=== PATIENT | male | born 1965 | race Caucasian/White ===

== ENCOUNTER 2017-09-03 09:32 | Inpatient (IN) | payer SELFPAY ==
--- NOTE | 2017-09-03 10:33 | RAD ---
SINGLE VIEW OF THE CHEST: Comparison: 05-07-16 History: Chest pain for one week. FINDINGS: Single view of the chest shows an enlarged cardiomediastinal silhouette. The pacemaker is unchanged in position. There is no evidence of consolidation, mass, or pleural effusion. IMPRESSION: Cardiomegaly without evidence of acute cardiopulmonary disease. POS: [facility]
[2017-09-03 10:35] LABS: #Basophils 0.1 thou/uL (0.0-0.2); #Eosinphils 0.1 thou/uL (0.0-0.7); #Lymphocytes 2.3 thou/uL (1.20-3.40); #Monocytes 0.5 thou/uL (0.11-0.59); #Neutrophils 3.8 thou/uL (1.40-6.50); %Basophils 0.9 % (0.0-1.0); %Lymphocytes 33.4 % (21.0-51.0); Hematocrit 48.4 % (42.0-52.0); Mean Platelet Volume 6.3 fL (7.4-10.4); Red Blood Cell (RBC) Count 4.79 mill/uL (4.70-6.10); White Blood Cell (WBC) Count 6.8 thou/uL (4.8-10.8)
[2017-09-03 10:46] LABS: Troponin I 0.027 ng/mL (< 0.028)
[2017-09-03 10:52] LABS: ALT (SGPT) 28 U/L (8-55); AST (SGOT) 28 U/L (5-34); Alkaline Phosphatase 105 U/L (40-150); Anion Gap 21 mmol/L (10-20); BUN (Urea Nitrogen) 19 mg/dL (8.9-20.6); Bilirubin, Total 0.2 mg/dL (0.2-1.2); CK (CPK) 101 U/L (30-200); Calc. Creatinine Clearance 0 mL/min (70-130); Calcium 9.7 mg/dL (7.8-10.44); Carbon Dioxide 21 mmol/L (22-29); Chloride 101 mmol/L (98-107); Estimated GFR-MDRD Greater than 90; Globulin 3.8 g/dL (2.4-3.5); Protein, Total 7.5 g/dL (6.0-8.3)
[2017-09-03] MEDS ORDERED: Nitroglycerin 0.4 MG TAB (25 Tab Bottle) ONE (11:28)
[2017-09-03] MEDS ORDERED: Morphine 4 MG/ML Carpuject ONE (13:20)
[2017-09-03] MEDS ORDERED: Nitroglycerin 0.4 MG TAB (25 Tab Bottle) PO PRN (14:15)
[2017-09-03] MEDS ORDERED: Calcium Carbonate 500 MG ChewTAB PO PRN (14:15)
[2017-09-03] MEDS ORDERED: Bisacodyl 5 MG TAB PO PRN (14:15)
[2017-09-03] MEDS ORDERED: Senokot 8.6 MG TAB PO PRN (14:15)
[2017-09-03] MEDS ORDERED: cloNIDine 0.1 MG TAB PO PRN (14:15)
[2017-09-03] MEDS ORDERED: Acetaminophen 325 MG TAB PO PRN (14:15)
[2017-09-03] MEDS ORDERED: Benzonatate 100 MG CAP PO PRN (14:15)
[2017-09-03] MEDS ORDERED: traMADol HCl 50 MG TAB PO PRN (14:15)
[2017-09-03] MEDS ORDERED: Loratadine 10 MG TAB PO PRN (14:15)
[2017-09-03] MEDS ORDERED: hydrALAZINE 20 MG/ML VIAL SLOW IVP PRN (14:15)
[2017-09-03] MEDS ORDERED: Mag-Al 1200 mg/1200 mg/30 ML UDCUP PO PRN (14:15)
[2017-09-03] MEDS ORDERED: Ondansetron HCl/PF 4 MG/2 ML Vial IVP PRN (14:15)
[2017-09-03] MEDS ORDERED: Lorazepam 1 MG TAB PO PRN (14:15)
[2017-09-03 14:30] LABS: Prothrombin Time 37.3 SEC (12.0-14.7)
[2017-09-03 14:31] LABS: PTT 86.4 SEC (22.9-36.1)
[2017-09-03 14:50] LABS: Troponin I 0.032 ng/mL (< 0.028)
[2017-09-03] MEDS ORDERED: HumaLOG 300 UNITS/3 ML VIAL SC PRN ×2 (15:26)
[2017-09-03] MEDS ORDERED: Dextrose 5% in Water 1,000 ML IV PRN (15:26)
[2017-09-03] MEDS ORDERED: Dextrose 50% Abboject 50 ML SYRINGE SLOW IVP PRN (15:26)
[2017-09-03] MEDS ORDERED: Furosemide 40 MG/4 ML VIAL SLOW IVP SCH (15:30)
--- NOTE | 2017-09-03 17:22 | HP ---
DATE OF ADMISSION: 09/03/2017 PRIMARY CARE PHYSICIAN: Karly Hill MD, at [facility] CHIEF COMPLAINT: Chest pain. HISTORY OF PRESENT ILLNESS: Mr. Riggins is a pleasant 52-year-old male with past medical hi story of nonischemic cardiomyopathy, status post AICD placement in 2013, hypertension; atrial fibril lation, on chronic anticoagulation; and history of hepatitis C; who presented to the emergency room with the above-mentioned complaints. History is mainly obtained by the patient himself and [facility] medical [facility] have been reviewed. The patient was last admitted to our facility in 10/2016 for cocaine and alcohol intoxication leading to encephalopathy. Mr. Riggins reports that he has been compliant with his medication and has been abstaining from alcoho l and drugs at this point. He reports an ongoing chest pain for the last month or so. The symptoms are exacerbated by slight exertion and are relieved by rest. These symptoms were associated with s hortness of breath and diaphoresis. He describes symptoms of difficulty with his breathing when lyi ng flat. He describes his chest pain as 8-9/10 in intensity, located on the left side centrally goi ng to his back. It feels like tightness to him. He reports that since the placement of AICD in , he has not been able to follow up with Cardiology as an outpatient due to financial reasons. He had a cardiac catheterization done prior to the AICD placement in 07/2014, which showed minimal mendez nary artery disease, but severe cardiac dysfunction requiring AICD. His last echocardiogram was mariya e in 10/2016, which showed improvement in his ejection fraction from 25%-45%. In the emergency room, initial workup included a chest x-ray, which did not show any pulmonary vascu lar congestion. His EKG showed ventricular paced rhythm at 75 beats per minute, prolonged QTC at 50 2 milliseconds. He is, otherwise, hemodynamically stable and is being admitted to telemetry unit fo r ACS workup. He was somewhat hypoxic on presentation with oxygen saturation of 89% on room air. Iman vann has a history of COPD, which has not been formally diagnosed, as he has been a longtime smoker. Iman vann reports that he was recently prescribed prednisone by his primary care physician only yesterday, b ut he has not been able to start it as yet. Otherwise, he is compliant with his medications. Recen tly, he was also started on Aldactone along with continuation of Lasix for his \\\\"fluid overload.\\\\" PAST MEDICAL HISTORY: 1. Chronic systolic congestive heart failure, EF of 40%-45%, 10/2016. 2. Chronic atrial fibrillation, on chronic anticoagulation. 3. History of upper extremity DVT in 2013 and on Coumadin. 4. Hypertension. 5. History of transient ischemic attack/stroke. 6. History of chronic obstructive pulmonary disease. 7. History of . PAST SURGICAL HISTORY: 1. AICD placement. 2. History of cardiac ablation for SVT. PAST PSYCHIATRIC HISTORY: Anxiety, depression, and polysubstance abuse. ALLERGIES: LATEX. CURRENT MEDICATIONS: Isosorbide mononitrate 30 mg daily, metoprolol tartrate 100 mg daily, Lasix 40 mg b.i.d., lovastatin 20 mg 2 tabs at bedtime, amlodipine 5 mg daily, Aldactone 25 mg daily, metfor min 500 b.i.d., phenytoin 300 mg 3 times a day, Coumadin 5 mg and 7.5 mg on alternate days, lisinopr il 40 mg daily. FAMILY HISTORY: His father also had a history of blood clots; otherwise, he denies any premature co ronary artery disease running in his family. SOCIAL HISTORY: He used to smoke half pack a day for 30 years, but is currently down to one cigar e very day. He drinks few beers here and there. He has given up his marijuana, methamphetamine and c ocaine habit according to patient. REVIEW OF SYSTEMS: The following complete review of systems was negative, unless otherwise mentione d in the HPI or below: Constitutional: Weight loss or gain, ability to conduct usual activities. Skin: Rash, itching. Eyes: Double vision, pain. ENT/Mouth: Nose bleeding, neck stiffness, pain, tenderness. Cardiovascular: Palpitations, dyspnea on exertion, orthopnea. Respiratory: Shortness of breath, wheezing, cough, hemoptysis, fever or night sweats. Gastrointestinal: Poor appetite, abdominal pain, heartburn, nausea, vomiting, constipation, or diar lyla. Genitourinary: Urgency, frequency, dysuria, nocturia. Musculoskeletal: Pain, swelling. Neurologic/Psychiatric: Anxiety, depression. Allergy/Immunologic: Skin rash, bleeding tendency. It is negative except for those mentioned in the history and physical. LABORATORY DATA AND IMAGING: His CBC shows macrocytosis without anemia. His INR is 3.6. Serum wild mistries show bicarbonate of 21, anion gap of 21, otherwise unremarkable. Cardiac enzymes 0.0274, t roponin with repeat troponin of 0.032. Blood sugar 186. BNP of 48. His plasma alcohol level is 55 . Chest x-ray by my review shows some evidence of pulmonary vascular congestion which is mild. No infiltrates. A 12-lead EKG by my review shows paced rhythm as per HPI. PHYSICAL EXAMINATION: VITAL SIGNS: Upon presentation include blood pressure 119/71, pulse of 70, saturating 89% on room a ir, respirations 24, temperature 97.6. GENERAL: He is sitting upright in bed as he reports that leaning back makes him short of breath. O therwise, he is in no acute distress, awake, alert, oriented x3. HEENT: Mucous membrane is moist and pink. No oropharyngeal exudate or erythema. Head is normoceph alic, atraumatic. Pupils are equal, reactive to light and accommodation. Extraocular movements int act. NECK: Supple without any lymphadenopathy, JVD or bruit. CHEST: Decreased breath sounds are noticed on the right lung base. There are no wheezes, but few c rackles heard at bilateral bases. ABDOMEN: Obese, soft, nontender, and nondistended. Positive bowel sounds. EXTREMITIES: Show pitting edema bilaterally, which is really tight. NEUROLOGIC: Examination is nonfocal. SKIN: Appears to have chronic edematous changes in bilateral lower extremities consistent with veno us stasis. PSYCHIATRIC: Normal affect. IMPRESSION AND PLAN: 1. Chest pain. The patient's symptomatology is concerning for angina. He has normal coronary cath eterization in 2013 with significant cardiomyopathy. Given the multiple risk factors, he is at high risk for developing coronary artery disease. At this time, we will request consultation with Cardi ology and continue to trend serial cardiac enzymes. We will start him on full dose aspirin and trena tor his symptoms. Continue the rest of his cardiac prudent medications as dictated above. We will also get his automatic implantable cardioverter defibrillator interrogated and obtain a nuclear medi cine stress test to rule out acute coronary syndrome. Also, obtain a urine drug screen to rule out cocaine-induced coronary spasm. Continue with his diuretics as well as beta yessica and nitrates. Given his history of chronic obstructive pulmonary disease; some of his symptoms can be because of b ronchospasm. We will order nebulizer as needed as well as long-acting inhaled steroids while he is in the hospital. He normally does not take any inhalers at home and would benefit from being starte d on long-term inhaled steroids or beta agonist. 2. Diabetes mellitus. He will be started on insulin sliding scale for better blood sugar coverage. Accu-Cheks a.c. and at bedtime have been ordered. 3. History of deep venous thrombosis and atrial fibrillation. We will continue with Coumadin with pharmacy to manage the dose. He is currently therapeutic. 4. History of cardiomyopathy, likely due to alcohol abuse. He has an automatic implantable cardiov erter defibrillator in place which will be interrogated as above. Continue cardiac prudent medicati ons. 5. Hypertension, currently well controlled. Resume his isosorbide, amlodipine, Aldactone, Lasix, a nd metoprolol as well as lisinopril at this time. 6. Dyslipidemia. We will recheck his lipid panel and continue with lovastatin. 7. History of chronic systolic congestive heart failure. The patient appears somewhat volume overl oaded. We will give him a dose of IV Lasix and monitor his symptoms. Resume his home medications f rom tomorrow morning including oral Lasix. Continue with Aldactone at home dosages. 8. Tobacco abuse. The patient has been counseled. 9. Alcohol abuse. The patient has provided counseling and he is eager to follow. 10. History of transient ischemic attack and stroke. The patient does not take any aspirin at home . 11. Deep venous thrombosis and gastrointestinal prophylaxis. 12. Code status: FULL CODE. Discussed with the patient. DISPOSITION: The patient is currently being admitted under observation status for chest pain workup which might be angina. If he indeed needs further invasive cardiac workup; he can be changed to in patient status. We will follow the recommendations from Cardiology and the results of his stress te st at this time.
[2017-09-03 17:30] LABS: Troponin I 0.044 ng/mL (< 0.028)
[2017-09-03] MEDS: Mometasone/Formoterol 120 PUFF INHALER INH SCH (18:44)
[2017-09-03 19:02] LABS: Amphetamine Not Detected (NotDetected); Methadone Not Detected (NotDetected); Methamphetamine Not Detected (NotDetected)
[2017-09-03] MEDS: HYDROcodone/Acetaminophen 10/325 mg Tablet PO PRN (20:14)
[2017-09-03] MEDS: Famotidine 20 MG TAB PO SCH (20:15)
[2017-09-03] MEDS ORDERED: Phenytoin 50 MG Chewable Tablet PO SCH (21:00)
[2017-09-04] MEDS: HYDROcodone/Acetaminophen 10/325 mg Tablet PO PRN ×4 (02:03→20:50)
[2017-09-04 05:03] LABS: #Eosinphils 0.2 thou/uL (0.0-0.7); #Lymphocytes 1.9 thou/uL (1.20-3.40); #Monocytes 0.9 thou/uL (0.11-0.59); #Neutrophils 4.9 thou/uL (1.40-6.50); %Basophils 0.4 % (0.0-1.0); %Eosinophils 2.6 % (0.0-10.0); %Lymphocytes 24.1 % (21.0-51.0); %Monocytes 10.9 % (0.0-10.0); Hematocrit 43.7 % (42.0-52.0); Mean Platelet Volume 6.4 fL (7.4-10.4); Red Blood Cell (RBC) Count 4.29 mill/uL (4.70-6.10); White Blood Cell (WBC) Count 7.9 thou/uL (4.8-10.8)
[2017-09-04 05:26] LABS: Anion Gap 16 mmol/L (10-20); BUN (Urea Nitrogen) 18 mg/dL (8.9-20.6); Calc. Creatinine Clearance 208 mL/min (70-130); Calcium 8.7 mg/dL (7.8-10.44); Carbon Dioxide 23 mmol/L (22-29); Chloride 101 mmol/L (98-107); Estimated GFR-MDRD Greater than 90
[2017-09-04] MEDS: Mometasone/Formoterol 120 PUFF INHALER INH SCH ×2 (06:50→18:41)
[2017-09-04 07:19] LABS: Prothrombin Time 25.4 SEC (12.0-14.7)
[2017-09-04] MEDS: Spironolactone 25 MG TAB PO SCH (08:06)
[2017-09-04] MEDS: Famotidine 20 MG TAB PO SCH ×2 (08:06→20:48)
[2017-09-04] MEDS: Amlodipine 5 MG TAB PO SCH (08:06)
[2017-09-04] MEDS: Aspirin 325 MG TAB PO SCH (08:06)
[2017-09-04] MEDS: Lisinopril 10 MG TAB PO SCH (08:07)
[2017-09-04] MEDS ORDERED: Furosemide 40 MG TAB PO SCH (09:00)
[2017-09-04] MEDS ORDERED: Metoprolol Tartrate 50 MG TAB PO SCH (09:15)
[2017-09-04] MEDS ORDERED: Furosemide 20 MG TAB PO SCH (09:15)
[2017-09-04 09:37] LABS: Troponin I 0.031 ng/mL (< 0.028)
[2017-09-04] MEDS ORDERED: Nitroglycerin 0.4 MG TAB (25 Tab Bottle) ONE (11:53)
[2017-09-04] MEDS: Warfarin Sodium 5 MG TAB PO SCH ×2 (12:14→17:27)
[2017-09-04] MEDS: Nicotine 14 MG PATCH TD SCH (12:29)
[2017-09-04] MEDS: Metoprolol Tartrate 50 MG TAB PO SCH ×2 (12:29→20:48)
[2017-09-04] MEDS: Furosemide 40 MG/4 ML VIAL SLOW IVP SCH (14:38)
--- NOTE | 2017-09-04 14:39 | PDOC.PN ---
- Subjective Encounter Start Date: 09/04/17 Encounter Start Time: 14:37 Subjective: feels chest pain now and then and BRO.no fever/chills/cough - Objective MAR Reviewed: Yes Vital Signs & Weight: Vital Signs (12 hours) Temp Pulse Resp BP BP Pulse Ox 09/04/17 11:24 97.5 F L 79 18 142/93 H 92 L 09/04/17 08:00 97.5 F L 79 18 09/04/17 07:16 97.9 F 93 18 143/93 H 94 L 09/04/17 06:50 72 16 98 09/04/17 04:20 98.7 F 84 20 164/92 H 92 L Weight Weight 268 lb 3.2 oz I&O: 09/03/17 09/04/17 09/05/17 06:59 06:59 06:59 Intake Total 990 Output Total 1225 Balance -235 Result Diagrams: 09/04/17 04:03 09/04/17 04:03 Additional Labs: Accuchecks 09/04/17 09/04/17 09/03/17 11:26 01:57 20:40 POC Glucose 118 H 105 155 H 09/03/17 17:12 POC Glucose 115 H Laboratory Tests 09/03/17 09/03/17 09/03/17 10:14 10:14 14:11 INR 3.6 Troponin I 0.027 0.032 H 09/03/17 09/04/17 09/04/17 16:54 06:56 08:49 INR 2.2 Troponin I 0.044 H 0.031 H Phys Exam - Physical Examination Constitutional: NAD HEENT: PERRLA, moist MMs, sclera anicteric, oral pharynx no lesions Neck: no nodes, no JVD, supple, full ROM Respiratory: no wheezing, no rales, no rhonchi, clear to auscultation bilateral Cardiovascular: RRR, no significant murmur Gastrointestinal: soft, non-tender, no distention, positive bowel sounds Musculoskeletal: pulses present, edema present Neurological: non-focal, normal sensation, moves all 4 limbs Psychiatric: normal affect, A&O x 3 Skin: no rash Dx/Plan (1) Chest pain Code(s): R07.9 - CHEST PAIN, UNSPECIFIED Status: Acute (2) Acute CHF Code(s): I50.9 - HEART FAILURE, UNSPECIFIED Status: Acute Qualifiers: Congestive heart failure type: systolic Qualified Code(s): I50.21 - Acute systolic (congestive) heart failure (3) Chronic systolic CHF (congestive heart failure) Code(s): I50.22 - CHRONIC SYSTOLIC (CONGESTIVE) HEART FAILURE Status: Chronic (4) Paroxysmal A-fib Code(s): I48.0 - PAROXYSMAL ATRIAL FIBRILLATION Status: Chronic (5) Chronic anticoagulation Code(s): Z79.01 - MILLER DISTILLERY (CURRENT) USE OF ANTICOAGULANTS Status: Chronic (6) Nonischemic cardiomyopathy Code(s): I42.8 - OTHER CARDIOMYOPATHIES Status: Chronic (7) HTN (hypertension) Code(s): I10 - ESSENTIAL (PRIMARY) HYPERTENSION Status: Chronic (8) History of DVT of lower extremity Code(s): Z86.718 - PERSONAL HISTORY OF OTHER VENOUS THROMBOSIS AND EMBOLISM Status: Chronic (9) COPD (chronic obstructive pulmonary disease) Status: Chronic (10) HLD (hyperlipidemia) Code(s): E78.5 - HYPERLIPIDEMIA, UNSPECIFIED Status: Chronic Comment: Poor control and noncompliance (11) Seizure disorder Code(s): G40.909 - EPILEPSY, UNSP, NOT INTRACTABLE, WITHOUT STATUS EPILEPTICUS Status: Chronic Comment: Stable on Dilantin. - Plan respiratory therapy, out of bed/ambulate, DVT proph w/SCDs Appreciate cardiology input.cancel stress test and obtain ECHO -: lasix IV BID for possible Ac systolic CHF.cont cardio-prudent meds. -: Add Nicotine patch.prn Nitroglycerin.strict I/Os -: Monitor BP. adjust meds .BB restarted at approproiate dose -will titrate. -: am labs.chnage to Inpt given Ac CHF & needing further studies. * .cont coumadin w pharmacy to manage. INR therapeutic. * cont aldactone. * cont ASA, statin,MARICHUY-I,BB Review of Systems - Review of Systems Constitutional: negative: Fever, Chills, Sweats, Weakness, Malaise, Other Respiratory: SOB with Excertion. negative: Cough, Dry, Shortness of Breath, Hemoptysis, Pleuritic Pain, Sputum, Wheezing Cardiovascular: Chest Pain, Edema. negative: Palpitations, Orthopnea, Paroxysmal Noc. Dyspnea, Light Headedness, Other Gastrointestinal: negative: Nausea, Vomiting, Abdominal Pain, Diarrhea, Constipation, Melena, Hematochezia, Other Genitourinary: negative: Dysuria, Frequency, Incontinence, Hematuria, Retention , Other Musculoskeletal: negative: Neck Pain, Shoulder Pain, Arm Pain, Back Pain, Hand Pain, Leg Pain, Foot Pain, Other Neurological: negative: Weakness, Numbness, Incoordination, Change in Speech, Confusion, Seizures, Other - Medications/Allergies Allergies/Adverse Reactions: Allergies Allergy/AdvReac Type Severity Reaction Status Date / Time latex Allergy Mild Severe Verified 09/03/17 16:32 Hives Medications: Current Medications Acetaminophen (Tylenol) 650 mg PO Q4H PRN PRN Reason: Headache/Fever or Pain Hydrocodone Bitart/Acetaminophen (Clinton 10/325) 1 tab PO Q6H PRN PRN Reason: Moderate Pain (4-6) Last Admin: 09/04/17 08:05 Dose: 1 tab Al Hydroxide/Mg Hydroxide (Maalox) 30 ml PO Q6H PRN PRN Reason: Heartburn or Indigestion Albuterol/Ipratropium (Duoneb) 3 ml NEB [id number] PRN PRN Reason: SOB &/or Wheezing Amlodipine Besylate (Norvasc) 5 mg PO DAILY [facility] Last Admin: 09/04/17 08:06 Dose: 5 mg Aspirin (Aspirin) 325 mg PO DAILY [facility] Last Admin: 09/04/17 08:06 Dose: 325 mg Benzonatate (Tessalon) 100 mg PO Q4H PRN PRN Reason: Cough Bisacodyl (Dulcolax) 10 mg PO DAILYPRN PRN PRN Reason: Constipation Calcium Carbonate (Tums) 1,000 mg PO Q4H PRN PRN Reason: Heartburn or Indigestion Clonidine (Catapres) 0.1 mg PO Q4H PRN PRN Reason: Systolic BP > 160 Dextrose/Water (Dextrose 50%) 25 gm SLOW IVP PRN PRN PRN Reason: Hypoglycemia Famotidine (Pepcid) 20 mg PO BID [facility] Last Admin: 09/04/17 08:06 Dose: 20 mg Furosemide (Lasix) 40 mg SLOW IVP 0600,1400 [facility] Glucagon (Glucagon) 1 mg IM PRN PRN PRN Reason: Hypoglycemia Hydralazine HCl (Apresoline) 10 mg SLOW IVP Q4H PRN PRN Reason: Systolic BP > 170 Dextrose/Water (D5w) 1,000 mls @ 0 mls/hr IV .Q0M PRN; As Directed PRN Reason: Hypoglycemia Insulin Human Lispro (Humalog) 0 units SC .MODERATE SLIDING SC PRN PRN Reason: Moderate Correctional Scale Insulin Human Lispro (Humalog) 0 units SC .BEDTIME SLIDING SC PRN PRN Reason: Bedtime Correctional Scale Isosorbide Mononitrate (Imdur Er) 30 mg PO DAILY [facility] Last Admin: 09/04/17 12:29 Dose: 30 mg Lisinopril (Zestril) 40 mg PO DAILY [facility] Last Admin: 09/04/17 08:07 Dose: 40 mg Loratadine (Claritin) 10 mg PO DAILYPRN PRN PRN Reason: Sinus Symptoms Lorazepam (Ativan) 1 mg PO Q4H PRN PRN Reason: Anxiety/Agitation Metoprolol Tartrate (Lopressor) 50 mg PO BID [facility] Last Admin: 09/04/17 12:29 Dose: 50 mg Mometasone Furoate/Formoterol Fumar (Dulera 200 Mcg/5 Mcg Inhaler) 2 puff INH BID-RT [facility] Last Admin: 09/04/17 06:50 Dose: 2 puff Nicotine (Nicoderm Patch) 14 mg TD Q24HR [facility] Last Admin: 09/04/17 12:29 Dose: 14 mg Nitroglycerin (Nitrostat) 0.4 mg SL Q5MIN PRN PRN Reason: Chest Pain Ondansetron HCl (Zofran) 4 mg IVP Q6H PRN PRN Reason: Nausea/Vomiting Phenytoin Sodium (Dilantin Er) 300 mg PO BID [facility] Last Admin: 09/04/17 08:07 Dose: 300 mg Senna (Senokot) 2 tab PO HSPRN PRN PRN Reason: Constipation Sodium Chloride (Flush - Normal Saline) 10 ml IVF PRN PRN PRN Reason: Saline Flush Last Admin: 09/03/17 20:17 Dose: 10 ml Spironolactone (Aldactone) 25 mg PO QAM-WM [facility] Last Admin: 09/04/17 08:06 Dose: 25 mg Tramadol HCl (Ultram) 50 mg PO Q4H PRN PRN Reason: Moderate Pain (4-6) Warfarin Sodium (Coumadin) 5 mg PO 1700 [facility] Last Admin: 09/04/17 12:14 Dose: Not Given
--- NOTE | 2017-09-04 16:03 | CON ---
DATE OF CONSULTATION: 09/04/2017 PRIMARY PROJECT OFFICER: Dr. Nish Meyers. REASON FOR CONSULTATION: Chest pain. HISTORY OF PRESENT ILLNESS: Mr. Riggins is a very pleasant 52-year-old white gentleman who comes to [facility] for chest pain. He has a history of nonischemic cardiomyopathy. He had this diagnosis given to him in 2013, at which point he had a heart catheterization and was found to have mild coron roel artery disease only. He had an EF which was reduced and an AICD was placed around the same time as his LV function was not improving. His LV dysfunction was thought to be related to substance ab use. He has been lost to follow up. He had an admission back in October of this year for alcohol i ntoxication as well as cocaine and had encephalopathy. He states that since that episode, he has no t had anymore drugs, but he continues to drink and his smoking has also decreased significantly to a bout a cigar a day according to him. He denies having any shocks from his AICD, but states that for the last week he has noticed chest tightness when he lays flat on his back and when that tightness starts, he feels some pinprick is on his chest that lasted few seconds. He states that the only thi ng that makes it better is sitting back up. He has had to sleep in a recliner in the last few weeks . Because of this, he is noted that his chronic PND, has been much worse lately and also has noted that his abdominal girth is much bigger. His pants are much tighter and his legs are much more swol daniele than usual. PAST MEDICAL HISTORY: 1. Chronic systolic dysfunction. Last EF done in October of this year showed an EF of 40-45%. 2. Chronic atrial fibrillation on chronic anticoagulation with Coumadin. 3. History of upper extremity DVT in 2013, on Coumadin. 4. Hypertension. 5. TIA. 6. COPD. 7. Substance abuse in the past. PAST SURGICAL HISTORY: 1. AICD placement. 2. SVT ablation in the past. SOCIAL HISTORY: Former smoker of half a pack a day, now he only drinks about one cigar every day. He drinks beer almost daily, does not do any more drugs, but he used to do marijuana, methamphetamin es and cocaine. FAMILY HISTORY: Noncontributory. OUTPATIENT MEDICATIONS: Include, 1. Imdur 30 mg. 2. Metoprolol tartrate 100 mg twice a day. 3. Lasix 40 mg twice a day. 4. Lovastatin 20 mg at bedtime. 5. Amlodipine 5 mg a day. 6. Aldactone 25 mg a day. 7. Metformin 500 mg b.i.d. 8. Phenytoin 200 mg 3 times a day. 9. Coumadin. 10. Lisinopril 40 mg daily. ALLERGIES: LATEX. REVIEW OF SYSTEMS: A 12-point review of systems was done and is all negative unless stated in the hi story of present illness. PHYSICAL EXAMINATION: VITAL SIGNS: Temperature 97.5, pulse 79, respiratory rate 18, satting 92% on 2 liters, blood pressu re 142/93. GENERAL: Awake, alert, oriented x3, in no distress. HEENT: Normocephalic, atraumatic. NECK: Supple, short, cannot see JVD. LUNGS: Clear anteriorly and posteriorly. CARDIOVASCULAR: S1 and S2, no S3 or S4. ABDOMEN: Distended but not tender. Positive ascitic wave. EXTREMITIES: Have 2+ edema. SKIN: Warm and dry. LABORATORY DATA AND IMAGIN. Laboratory work was reviewed. White count is 6.9, hemoglobin is 16, hematocrit 48, platelet cou nt of 302. Coags were reviewed. INR was 3.6 on admission, 2.2 now. Chemistries were reviewed whic h were unremarkable. His BNP on admission was 48. His albumin of 3.7. Troponin went from 0.02, 0. 03, 0.05, and 0.03. 2. Triglycerides of 326, total cholesterol of 225, LDL of 122, HDL of 38. 3. EKG showed underlying atrial fibrillation, AV paced rhythm. Most recent echocardiogram was done in October of this year and it showed an EF of 45%-50% with left atrial enlargement. ASSESSMENT AND PLAN: 1. Acute right ventricular systolic heart failure. 2. Chest pain. 3. Nonischemic cardiomyopathy. 4. Hypertension. PLAN clinics: At this time, his troponins are not significant evidence of an acute coronary syndrom e in the setting of having had very mild disease just 3 years ago. This is unlikely to be an acute coronary syndrome. His symptoms are more related to just shortness of breath with lying down, megan r when sitting up, increase in his PND, increase in his leg edema and abdominal swelling. We will p jeffery on diuresing him. I will put him on 40 mg of IV Lasix twice a day. I do not think that his BNP is any bearing in his condition at this point, he probably has too much fluid in his abdomen. We w ill get him diuresed. Hopefully, he will feel better this way. We will get an echocardiogram to as sess his LV function and see it is change in anyway. Thank you for letting us to participate in the care of your patient, Dr. Meyers is primary cardiol ogist and we will follow in the morning.
[2017-09-04] MEDS ORDERED: Atorvastatin Calcium 10 MG TAB PO SCH (21:00)
[2017-09-04] MEDS: Zolpidem Tartrate 5 MG TAB PO PRN (22:38)
[2017-09-05] MEDS: HYDROcodone/Acetaminophen 10/325 mg Tablet PO PRN ×4 (02:50→22:01)
[2017-09-05] MEDS: Furosemide 40 MG/4 ML VIAL SLOW IVP SCH ×2 (06:18→14:02)
[2017-09-05 06:20] LABS: Anion Gap 13 mmol/L (10-20); BUN (Urea Nitrogen) 19 mg/dL (8.9-20.6); Calc. Creatinine Clearance 180 mL/min (70-130); Calcium 9.1 mg/dL (7.8-10.44); Carbon Dioxide 26 mmol/L (22-29); Chloride 101 mmol/L (98-107); Estimated GFR-MDRD Greater than 90
[2017-09-05] MEDS: Mometasone/Formoterol 120 PUFF INHALER INH SCH ×2 (07:11→19:03)
[2017-09-05] MEDS ORDERED: COUMADIN PO PRN (08:09)
[2017-09-05] MEDS: Aspirin 325 MG TAB PO SCH (08:16)
[2017-09-05] MEDS: Amlodipine 5 MG TAB PO SCH (08:17)
[2017-09-05] MEDS: Metoprolol Tartrate 50 MG TAB PO SCH (08:17)
[2017-09-05] MEDS: Lisinopril 10 MG TAB PO SCH (08:17)
[2017-09-05] MEDS: Spironolactone 25 MG TAB PO SCH (08:17)
[2017-09-05] MEDS: Famotidine 20 MG TAB PO SCH ×2 (08:17→20:05)
[2017-09-05 09:31] LABS: Prothrombin Time 17.7 SEC (12.0-14.7)
[2017-09-05] MEDS: Nicotine 14 MG PATCH TD SCH (11:44)
--- NOTE | 2017-09-05 12:04 | PDOC.PN ---
- Subjective Encounter Start Date: 09/05/17 Encounter Start Time: 12:02 Subjective: still c/o SOB on lying down and chest pain on bending - Objective Vital Signs & Weight: Vital Signs (12 hours) Temp Pulse Resp BP BP BP Pulse Ox 09/05/17 08:17 87 133/90 09/05/17 07:37 97.7 F 73 18 133/90 92 L 09/05/17 07:11 87 18 95 09/05/17 06:14 98 F 73 20 131/81 93 L 09/05/17 01:29 96 Weight Weight 269 lb 12.8 oz I&O: 09/04/17 09/05/17 09/06/17 06:59 06:59 06:59 Intake Total 990 1194 Output Total 1225 2300 Balance -235 -1106 Result Diagrams: 09/04/17 04:03 09/05/17 05:11 Additional Labs: Accuchecks 09/05/17 09/04/17 09/04/17 06:25 20:21 16:46 POC Glucose 121 H 120 H 110 09/04/17 11:26 POC Glucose 118 H Radiology Reviewed by me: Yes (ECHO-EF 45%-50%.) Phys Exam - Physical Examination Constitutional: NAD HEENT: PERRLA, moist MMs, sclera anicteric, oral pharynx no lesions Neck: no nodes, no JVD, supple, full ROM Respiratory: no wheezing, no rales, no rhonchi, clear to auscultation bilateral Cardiovascular: RRR, no significant murmur Gastrointestinal: soft, non-tender, no distention, positive bowel sounds Musculoskeletal: pulses present, edema present Neurological: non-focal, normal sensation, moves all 4 limbs Psychiatric: normal affect, A&O x 3 Skin: no rash Dx/Plan (1) Chest pain Code(s): R07.9 - CHEST PAIN, UNSPECIFIED Status: Acute Comment: May still need cardiac stress test or Cath.? angina. (2) Acute CHF Code(s): I50.9 - HEART FAILURE, UNSPECIFIED Status: Acute Qualifiers: Congestive heart failure type: systolic Qualified Code(s): I50.21 - Acute systolic (congestive) heart failure (3) Chronic systolic CHF (congestive heart failure) Code(s): I50.22 - CHRONIC SYSTOLIC (CONGESTIVE) HEART FAILURE Status: Chronic (4) Paroxysmal A-fib Code(s): I48.0 - PAROXYSMAL ATRIAL FIBRILLATION Status: Chronic (5) Chronic anticoagulation Code(s): Z79.01 - SKILLED NURSING (CURRENT) USE OF ANTICOAGULANTS Status: Chronic (6) Nonischemic cardiomyopathy Code(s): I42.8 - OTHER CARDIOMYOPATHIES Status: Chronic (7) HTN (hypertension) Code(s): I10 - ESSENTIAL (PRIMARY) HYPERTENSION Status: Chronic (8) History of DVT of lower extremity Code(s): Z86.718 - PERSONAL HISTORY OF OTHER VENOUS THROMBOSIS AND EMBOLISM Status: Chronic (9) COPD (chronic obstructive pulmonary disease) Status: Chronic (10) HLD (hyperlipidemia) Code(s): E78.5 - HYPERLIPIDEMIA, UNSPECIFIED Status: Chronic Comment: Poor control and noncompliance (11) Seizure disorder Code(s): G40.909 - EPILEPSY, UNSP, NOT INTRACTABLE, WITHOUT STATUS EPILEPTICUS Status: Chronic Comment: Stable on Dilantin. - Plan respiratory therapy, incentive spirometry, out of bed/ambulate, DVT proph w/SCDs inadequate diuresis.will give zaroxolyn.if no help-increase lasix/ -: Dr. Meyers to see today.? Stress test/Cath.cont ASA,BB,statin,MARICHUY-I. -: INR sub therapeutic-mya increase coumadin dose. -: cont rest of the home meds as below.monitor renal Function -: strict I/Os.tele monitoring.PRN SubL. Nitro * . Review of Systems - Review of Systems Constitutional: negative: Fever, Chills, Sweats, Weakness, Malaise, Other Respiratory: SOB with Excertion. negative: Cough, Dry, Shortness of Breath, Hemoptysis, Pleuritic Pain, Sputum, Wheezing Cardiovascular: Chest Pain, Paroxysmal Noc. Dyspnea, Edema Gastrointestinal: negative: Nausea, Vomiting, Abdominal Pain, Diarrhea, Constipation, Melena, Hematochezia, Other Genitourinary: negative: Dysuria, Frequency, Incontinence, Hematuria, Retention , Other Musculoskeletal: negative: Neck Pain, Shoulder Pain, Arm Pain, Back Pain, Hand Pain, Leg Pain, Foot Pain, Other Neurological: negative: Weakness, Numbness, Incoordination, Change in Speech, Confusion, Seizures, Other - Medications/Allergies Allergies/Adverse Reactions: Allergies Allergy/AdvReac Type Severity Reaction Status Date / Time latex Allergy Mild Severe Verified 09/03/17 16:32 Hives tramadol AdvReac Verified 09/04/17 19:13 Medications: Current Medications Acetaminophen (Tylenol) 650 mg PO Q4H PRN PRN Reason: Headache/Fever or Pain Hydrocodone Bitart/Acetaminophen ([place] 10/325) 1 tab PO Q6H PRN PRN Reason: Moderate Pain (4-6) Last Admin: 09/05/17 08:03 Dose: 1 tab Al Hydroxide/Mg Hydroxide (Maalox) 30 ml PO Q6H PRN PRN Reason: Heartburn or Indigestion Albuterol/Ipratropium (Duoneb) 3 ml NEB [id number] PRN PRN Reason: SOB &/or Wheezing Last Admin: 09/04/17 20:32 Dose: 3 ml Amlodipine Besylate (Norvasc) 5 mg PO DAILY [facility] Last Admin: 09/05/17 08:17 Dose: 5 mg Aspirin (Aspirin) 325 mg PO DAILY [facility] Last Admin: 09/05/17 08:16 Dose: 325 mg Atorvastatin Calcium (Lipitor) 10 mg PO HS [facility] Last Admin: 09/04/17 20:48 Dose: 10 mg Benzonatate (Tessalon) 100 mg PO Q4H PRN PRN Reason: Cough Bisacodyl (Dulcolax) 10 mg PO DAILYPRN PRN PRN Reason: Constipation Calcium Carbonate (Tums) 1,000 mg PO Q4H PRN PRN Reason: Heartburn or Indigestion Clonidine (Catapres) 0.1 mg PO Q4H PRN PRN Reason: Systolic BP > 160 Dextrose/Water (Dextrose 50%) 25 gm SLOW IVP PRN PRN PRN Reason: Hypoglycemia Famotidine (Pepcid) 20 mg PO BID [facility] Last Admin: 09/05/17 08:17 Dose: 20 mg Furosemide (Lasix) 40 mg SLOW IVP 0600,1400 [facility] Last Admin: 09/05/17 06:18 Dose: 40 mg Glucagon (Glucagon) 1 mg IM PRN PRN PRN Reason: Hypoglycemia Hydralazine HCl (Apresoline) 10 mg SLOW IVP Q4H PRN PRN Reason: Systolic BP > 170 Dextrose/Water (D5w) 1,000 mls @ 0 mls/hr IV .Q0M PRN; As Directed PRN Reason: Hypoglycemia Insulin Human Lispro (Humalog) 0 units SC .MODERATE SLIDING SC PRN PRN Reason: Moderate Correctional Scale Insulin Human Lispro (Humalog) 0 units SC .BEDTIME SLIDING SC PRN PRN Reason: Bedtime Correctional Scale Isosorbide Mononitrate (Imdur Er) 30 mg PO DAILY [facility] Last Admin: 09/05/17 08:16 Dose: 30 mg Lisinopril (Zestril) 40 mg PO DAILY [facility] Last Admin: 09/05/17 08:17 Dose: 40 mg Loratadine (Claritin) 10 mg PO DAILYPRN PRN PRN Reason: Sinus Symptoms Lorazepam (Ativan) 1 mg PO Q4H PRN PRN Reason: Anxiety/Agitation Last Admin: 09/05/17 11:43 Dose: 1 mg Metolazone (Zaroxolyn) 5 mg PO ONE [facility] Metoprolol Tartrate (Lopressor) 50 mg PO BID [facility] Last Admin: 09/05/17 08:17 Dose: 50 mg Miscellaneous Medication (Pharmacy To Dose) 0 each PO DAILYPRN PRN PRN Reason: LABS Mometasone Furoate/Formoterol Fumar (Dulera 200 Mcg/5 Mcg Inhaler) 2 puff INH BID-RT [facility] Last Admin: 09/05/17 07:11 Dose: 2 puff Nicotine (Nicoderm Patch) 14 mg TD Q24HR [facility] Last Admin: 09/05/17 11:44 Dose: 14 mg Nitroglycerin (Nitrostat) 0.4 mg SL Q5MIN PRN PRN Reason: Chest Pain Ondansetron HCl (Zofran) 4 mg IVP Q6H PRN PRN Reason: Nausea/Vomiting Phenytoin Sodium (Dilantin Er) 300 mg PO BID [facility] Last Admin: 09/05/17 08:16 Dose: 300 mg Senna (Senokot) 2 tab PO HSPRN PRN PRN Reason: Constipation Sodium Chloride (Flush - Normal Saline) 10 ml IVF PRN PRN PRN Reason: Saline Flush Last Admin: 09/05/17 06:18 Dose: 10 ml Spironolactone (Aldactone) 25 mg PO QAM-WM [facility] Last Admin: 09/05/17 08:17 Dose: 25 mg Warfarin Sodium (Coumadin) 5 mg PO 1700 [facility] Last Admin: 09/04/17 17:27 Dose: 5 mg Zolpidem Tartrate (Ambien) 5 mg PO HS PRN PRN Reason: Insomnia Last Admin: 09/04/17 22:38 Dose: 5 mg
[2017-09-05] MEDS ORDERED: Warfarin Sodium 5 MG TAB PO SCH (12:07)
[2017-09-05] MEDS ORDERED: Metolazone 5 MG TAB PO SCH (12:15)
[2017-09-05] MEDS: Morphine PF 1 MG/ML SYR IVP PRN ×2 (15:58→20:03)
[2017-09-05 16:46] LABS: Bilirubin Negative (Negative); Blood, Urine Negative (Negative); Glucose, Urine (Dipstick) Negative (Negative); Ketone, Urine Negative (Negative); Nitrite Negative (Negative); Protein, Urine (Dipstick) Negative (Neg-Trace); Urobilinogen 0.2 mg/dL (0.2-1.0)
[2017-09-05] MEDS: Warfarin Sodium 7.5 MG TAB PO SCH (18:01)
[2017-09-05] MEDS: Atorvastatin Calcium 40 MG TAB PO SCH (20:04)
[2017-09-05] MEDS: Zolpidem Tartrate 5 MG TAB PO PRN (20:05)
[2017-09-05] MEDS: Metoprolol Tartrate 100 MG TAB PO SCH (20:05)
[2017-09-06] MEDS: Morphine PF 1 MG/ML SYR IVP PRN ×4 (00:09→14:33)
[2017-09-06] MEDS: HYDROcodone/Acetaminophen 10/325 mg Tablet PO PRN ×3 (05:24→17:45)
[2017-09-06] MEDS: Furosemide 40 MG/4 ML VIAL SLOW IVP SCH ×2 (05:24→14:34)
[2017-09-06] MEDS: Nitroglycerin 0.4 MG TAB (25 Tab Bottle) SL PRN ×2 (05:25→12:48)
[2017-09-06 05:44] LABS: Prothrombin Time 15.4 SEC (12.0-14.7)
[2017-09-06 06:03] LABS: Anion Gap 16 mmol/L (10-20); BUN (Urea Nitrogen) 25 mg/dL (8.9-20.6); Calc. Creatinine Clearance 168 mL/min (70-130); Calcium 9.1 mg/dL (7.8-10.44); Carbon Dioxide 26 mmol/L (22-29); Chloride 98 mmol/L (98-107); Estimated GFR-MDRD 88
[2017-09-06] MEDS: Mometasone/Formoterol 120 PUFF INHALER INH SCH ×2 (07:17→20:27)
[2017-09-06] MEDS: Famotidine 20 MG TAB PO SCH ×2 (08:06→20:41)
[2017-09-06] MEDS: Lisinopril 10 MG TAB PO SCH (08:06)
[2017-09-06] MEDS: Metoprolol Tartrate 100 MG TAB PO SCH ×2 (08:06→20:41)
[2017-09-06] MEDS: Spironolactone 25 MG TAB PO SCH (08:07)
[2017-09-06] MEDS: Nicotine 14 MG PATCH TD SCH (11:20)
--- NOTE | 2017-09-06 12:15 | PDOC.PN ---
- Subjective Encounter Start Date: 09/06/17 Encounter Start Time: 12:14 Subjective: feels a bit better.swelling and SOB improving - Objective MAR Reviewed: Yes Vital Signs & Weight: Vital Signs (12 hours) Temp Pulse Resp BP BP BP Pulse Ox 09/06/17 11:20 73 20 125/75 97 09/06/17 10:56 73 16 94 L 09/06/17 08:06 154/95 H 09/06/17 07:18 97 09/06/17 07:17 76 18 154/95 H 97 09/06/17 04:17 98.4 F 71 18 124/97 H 94 L 09/06/17 01:09 96 Weight Weight 266 lb I&O: 09/05/17 09/06/17 09/07/17 06:59 06:59 06:59 Intake Total 1194 1260 Output Total 2300 5150 Balance -1730 -6616 Result Diagrams: 09/04/17 04:03 09/06/17 05:22 Additional Labs: Accuchecks 09/06/17 09/06/17 09/05/17 10:58 05:22 20:30 POC Glucose 140 H 146 H 137 H 09/05/17 09/05/17 16:23 11:05 POC Glucose 107 126 H Laboratory Tests 09/03/17 09/04/17 09/05/17 10:14 06:56 09:14 INR 3.6 2.2 1.4 09/06/17 05:22 INR 1.2 Phys Exam - Physical Examination Constitutional: NAD HEENT: PERRLA, moist MMs, sclera anicteric, oral pharynx no lesions Neck: no nodes, no JVD, supple, full ROM Respiratory: no wheezing, no rales, no rhonchi, clear to auscultation bilateral Cardiovascular: RRR, no significant murmur, no rub, gallop Gastrointestinal: soft, non-tender, no distention, positive bowel sounds Musculoskeletal: no edema, pulses present Neurological: non-focal, normal sensation, moves all 4 limbs Psychiatric: normal affect, A&O x 3 Skin: no rash Dx/Plan (1) Acute CHF Code(s): I50.9 - HEART FAILURE, UNSPECIFIED Status: Acute Qualifiers: Congestive heart failure type: systolic Qualified Code(s): I50.21 - Acute systolic (congestive) heart failure (2) Chest pain Code(s): R07.9 - CHEST PAIN, UNSPECIFIED Status: Acute Comment: Last Cath in 2013 with minimal disease per cardiology (3) Chronic systolic CHF (congestive heart failure) Code(s): I50.22 - CHRONIC SYSTOLIC (CONGESTIVE) HEART FAILURE Status: Chronic (4) Paroxysmal A-fib Code(s): I48.0 - PAROXYSMAL ATRIAL FIBRILLATION Status: Chronic (5) Chronic anticoagulation Code(s): Z79.01 - SENIOR BI DEVELOPER (CURRENT) USE OF ANTICOAGULANTS Status: Chronic (6) Nonischemic cardiomyopathy Code(s): I42.8 - OTHER CARDIOMYOPATHIES Status: Chronic (7) HTN (hypertension) Code(s): I10 - ESSENTIAL (PRIMARY) HYPERTENSION Status: Chronic (8) History of DVT of lower extremity Code(s): Z86.718 - PERSONAL HISTORY OF OTHER VENOUS THROMBOSIS AND EMBOLISM Status: Chronic (9) COPD (chronic obstructive pulmonary disease) Status: Chronic (10) HLD (hyperlipidemia) Code(s): E78.5 - HYPERLIPIDEMIA, UNSPECIFIED Status: Chronic Comment: Poor control and noncompliance (11) Seizure disorder Code(s): G40.909 - EPILEPSY, UNSP, NOT INTRACTABLE, WITHOUT STATUS EPILEPTICUS Status: Chronic Comment: Stable on Dilantin. - Plan DVT proph w/SCDs cont diureisis.adequate repsonnse w zaroxolyn. -: cont BB-dose increased.Lipitor dos eincreased. -: hemodynamically stbale.cardiology following -: wilmar SALDAÑA home in next 24-48 hours w HF clinic f/u. -: am labs. * . Review of Systems - Review of Systems Constitutional: negative: Fever, Chills, Sweats, Weakness, Malaise, Other Respiratory: SOB with Excertion Cardiovascular: Chest Pain. negative: Palpitations, Orthopnea, Paroxysmal Noc. Dyspnea, Edema, Light Headedness, Other Gastrointestinal: negative: Nausea, Vomiting, Abdominal Pain, Diarrhea, Constipation, Melena, Hematochezia, Other Genitourinary: negative: Dysuria, Frequency, Incontinence, Hematuria, Retention , Other Musculoskeletal: negative: Neck Pain, Shoulder Pain, Arm Pain, Back Pain, Hand Pain, Leg Pain, Foot Pain, Other Neurological: negative: Weakness, Numbness, Incoordination, Change in Speech, Confusion, Seizures, Other - Medications/Allergies Allergies/Adverse Reactions: Allergies Allergy/AdvReac Type Severity Reaction Status Date / Time latex Allergy Mild Severe Verified 09/03/17 16:32 Hives tramadol AdvReac Verified 09/04/17 19:13 Medications: Current Medications Acetaminophen (Tylenol) 650 mg PO Q4H PRN PRN Reason: Headache/Fever or Pain Hydrocodone Bitart/Acetaminophen ([place] 10/325) 1 tab PO Q6H PRN PRN Reason: Moderate Pain (4-6) Last Admin: 09/06/17 11:21 Dose: 1 tab Al Hydroxide/Mg Hydroxide (Maalox) 30 ml PO Q6H PRN PRN Reason: Heartburn or Indigestion Albuterol/Ipratropium (Duoneb) 3 ml NEB [id number] PRN PRN Reason: SOB &/or Wheezing Last Admin: 09/06/17 10:56 Dose: 3 ml Atorvastatin Calcium (Lipitor) 40 mg PO HS [facility] Last Admin: 09/05/17 20:04 Dose: 40 mg Benzonatate (Tessalon) 100 mg PO Q4H PRN PRN Reason: Cough Bisacodyl (Dulcolax) 10 mg PO DAILYPRN PRN PRN Reason: Constipation Calcium Carbonate (Tums) 1,000 mg PO Q4H PRN PRN Reason: Heartburn or Indigestion Clonidine (Catapres) 0.1 mg PO Q4H PRN PRN Reason: Systolic BP > 160 Dextrose/Water (Dextrose 50%) 25 gm SLOW IVP PRN PRN PRN Reason: Hypoglycemia Famotidine (Pepcid) 20 mg PO BID [facility] Last Admin: 09/06/17 08:06 Dose: 20 mg Furosemide (Lasix) 40 mg SLOW IVP 0600,1400 [facility] Last Admin: 09/06/17 05:24 Dose: 40 mg Glucagon (Glucagon) 1 mg IM PRN PRN PRN Reason: Hypoglycemia Hydralazine HCl (Apresoline) 10 mg SLOW IVP Q4H PRN PRN Reason: Systolic BP > 170 Dextrose/Water (D5w) 1,000 mls @ 0 mls/hr IV .Q0M PRN; As Directed PRN Reason: Hypoglycemia Insulin Human Lispro (Humalog) 0 units SC .MODERATE SLIDING SC PRN PRN Reason: Moderate Correctional Scale Insulin Human Lispro (Humalog) 0 units SC .BEDTIME SLIDING SC PRN PRN Reason: Bedtime Correctional Scale Isosorbide Mononitrate (Imdur Er) 30 mg PO DAILY [facility] Last Admin: 09/06/17 08:06 Dose: 30 mg Lisinopril (Zestril) 40 mg PO DAILY [facility] Last Admin: 09/06/17 08:06 Dose: 40 mg Loratadine (Claritin) 10 mg PO DAILYPRN PRN PRN Reason: Sinus Symptoms Lorazepam (Ativan) 1 mg PO Q4H PRN PRN Reason: Anxiety/Agitation Last Admin: 09/05/17 11:43 Dose: 1 mg Metoprolol Tartrate (Lopressor) 100 mg PO BID [facility] Last Admin: 09/06/17 08:06 Dose: 100 mg Miscellaneous Medication (Pharmacy To Dose) 0 each PO DAILYPRN PRN PRN Reason: LABS Mometasone Furoate/Formoterol Fumar (Dulera 200 Mcg/5 Mcg Inhaler) 2 puff INH BID-RT [facility] Last Admin: 09/06/17 07:17 Dose: 2 puff Morphine Sulfate (Duramorph) 2 mg IVP Q4H PRN PRN Reason: Severe Pain (7-10) Last Admin: 09/06/17 08:05 Dose: 2 mg Nicotine (Nicoderm Patch) 14 mg TD Q24HR [facility] Last Admin: 09/06/17 11:20 Dose: 14 mg Nitroglycerin (Nitrostat) 0.4 mg SL Q5MIN PRN PRN Reason: Chest Pain Last Admin: 09/06/17 05:25 Dose: 0.4 mg Ondansetron HCl (Zofran) 4 mg IVP Q6H PRN PRN Reason: Nausea/Vomiting Phenytoin Sodium (Dilantin Er) 300 mg PO BID [facility] Last Admin: 09/06/17 08:06 Dose: 300 mg Senna (Senokot) 2 tab PO HSPRN PRN PRN Reason: Constipation Sodium Chloride (Flush - Normal Saline) 10 ml IVF PRN PRN PRN Reason: Saline Flush Last Admin: 09/06/17 08:05 Dose: 10 ml Spironolactone (Aldactone) 25 mg PO QAM-WM [facility] Last Admin: 09/06/17 08:07 Dose: 25 mg Warfarin Sodium (Coumadin) 7.5 mg PO 1700 [facility] Last Admin: 09/05/17 18:01 Dose: 7.5 mg Zolpidem Tartrate (Ambien) 5 mg PO HS PRN PRN Reason: Insomnia Last Admin: 09/05/17 20:05 Dose: 5 mg
--- NOTE | 2017-09-06 14:34 | PDOC.CTH ---
<Carlee Villanueva - Last Filed: 09/06/17 14:30> Cardiology Progress Note - Subjective The pt was seen and examined. No overnight events. No cardiac complaints. - Objective Vital Signs Temp Pulse Resp BP BP BP Pulse Ox 09/06/17 11:20 73 20 125/75 97 09/06/17 10:56 73 16 94 L 09/06/17 08:06 154/95 H 09/06/17 07:18 97 09/06/17 07:17 76 18 154/95 H 97 09/06/17 04:17 98.4 F 71 18 124/97 H 94 L Weight 266 lb 09/05/17 09/06/17 09/07/17 06:59 06:59 06:59 Intake Total 1194 1260 Output Total 2300 5150 Balance -1106 -3890 - Physical Examination General/Neuro: alert & oriented x3 Neck: no JVD present Lungs: CTA Abdomen: soft Extremities: other: (no edemas) - Telemetry Telemetry Rhythm: V paced with PVCs - Labs Result Diagrams: 09/04/17 04:03 09/06/17 05:22 Troponin/CKMB CK-MB (CK-2) 5.8 ng/mL (0-6.6) 09/03/17 10:14 Troponin I 0.031 ng/mL (< 0.028) H 09/04/17 08:49 - Assessment/Plan 1.Acute on Chronic systolic HF - Echo on 09/04/17 showed EF 45-50% and mild TR, MR, and AK. 2. Non-ischemic CMY with BiV AICD - current interrogation was normal 3. Mild CAD - Last Cath in 2013 with minimal disease per cardiology 4. Chronic Afib - on Coumadin 5. HTN - stable with current medication, BBlocker and MARICHUY; cont. monitor 6. COPD - stable with RA 7. Hyperlipidemia - Lipitor was increased to 40mg daily 8. hx o TIA - stable; on coumaidn 9. tobacco abuse - Smoking education given to the pt 10. Seizure disorder - on Dilantin; managed by PCP 11. Anxiety - hx of drug abuse MAR Reviewed Review of Systems - Review of Systems Constitutional: reports: no symptoms reported EENTM: reports: no symptoms reported Respiratory: reports: no symptoms reported Cardiac (ROS): reports: no symptoms reported ABD/GI: reports: no symptoms reported : reports: no symptoms reported Musculoskeletal: reports: no symptoms reported Skin: reports: no symptoms reported Neurological: reports: no symptoms reported <Isabella Echeverria - Last Filed: 09/06/17 20:36> Cardiology Progress Note - Objective Vital Signs Temp Pulse Resp BP Pulse Ox 09/06/17 20:27 74 18 93 L 09/06/17 15:25 95 09/06/17 15:22 97.7 F 83 18 120/89 95 09/06/17 11:20 73 20 125/75 97 09/06/17 10:56 73 16 94 L Weight 266 lb 09/05/17 09/06/17 09/07/17 06:59 06:59 06:59 Intake Total 1194 1260 898 Output Total 2300 5150 1900 Balance -1106 -3890 -1002 - Labs Result Diagrams: 09/04/17 04:03 09/06/17 05:22 Troponin/CKMB CK-MB (CK-2) 5.8 ng/mL (0-6.6) 09/03/17 10:14 Troponin I 0.031 ng/mL (< 0.028) H 09/04/17 08:49 - Assessment/Plan Pt. was seen and eval. by me. I agree with the A/P by the NOZZLE OPERATOR.continue present meds.
[2017-09-06] MEDS: Warfarin Sodium 7.5 MG TAB PO SCH (17:45)
[2017-09-06] MEDS: Atorvastatin Calcium 40 MG TAB PO SCH (20:41)
[2017-09-06] MEDS: Morphine 4 MG/ML VIAL IV PRN (20:42)
[2017-09-06] MEDS: Zolpidem Tartrate 5 MG TAB PO PRN (20:48)
[2017-09-07] MEDS: Morphine 4 MG/ML VIAL IV PRN ×5 (00:36→21:25)
[2017-09-07] MEDS: Furosemide 40 MG/4 ML VIAL SLOW IVP SCH ×2 (05:09→14:37)
[2017-09-07 06:03] LABS: Prothrombin Time 16.7 SEC (12.0-14.7)
[2017-09-07 06:25] LABS: Anion Gap 13 mmol/L (10-20); BUN (Urea Nitrogen) 27 mg/dL (8.9-20.6); Calc. Creatinine Clearance 193 mL/min (70-130); Calcium 9.4 mg/dL (7.8-10.44); Carbon Dioxide 30 mmol/L (22-29); Chloride 96 mmol/L (98-107); Estimated GFR-MDRD Greater than 90
[2017-09-07] MEDS: Mometasone/Formoterol 120 PUFF INHALER INH SCH ×2 (06:54→20:14)
[2017-09-07] MEDS: HYDROcodone/Acetaminophen 10/325 mg Tablet PO PRN ×3 (07:18→20:07)
[2017-09-07] MEDS: Spironolactone 25 MG TAB PO SCH (08:49)
[2017-09-07] MEDS: Metoprolol Tartrate 100 MG TAB PO SCH ×2 (08:49→20:09)
[2017-09-07] MEDS: Metolazone 2.5 MG TAB PO SCH (08:49)
[2017-09-07] MEDS: Famotidine 20 MG TAB PO SCH ×2 (08:50→20:09)
[2017-09-07] MEDS: Lisinopril 10 MG TAB PO SCH (08:54)
[2017-09-07] MEDS ORDERED: Warfarin Sodium 7.5 MG TAB PO SCH (10:16)
--- NOTE | 2017-09-07 10:16 | PDOC.PN ---
- Subjective Encounter Start Date: 09/07/17 Encounter Start Time: 10:14 Subjective: feels much better.still on and off chest pain - Objective MAR Reviewed: Yes Vital Signs & Weight: Vital Signs (12 hours) Temp Pulse Resp BP BP BP Pulse Ox 09/07/17 08:54 111/68 09/07/17 08:05 97.6 F 71 16 111/68 96 09/07/17 04:00 97.7 F 70 18 108/70 95 09/07/17 03:33 93 L Weight Weight 266 lb I&O: 09/06/17 09/07/17 09/08/17 06:59 06:59 06:59 Intake Total 1260 1378 Output Total 0723 5155 Balance -0044 -332 Result Diagrams: 09/04/17 04:03 09/07/17 05:24 Additional Labs: Accuchecks 09/07/17 09/06/17 09/06/17 06:11 20:40 17:26 POC Glucose 127 H 131 H 118 H 09/06/17 10:58 POC Glucose 140 H Phys Exam - Physical Examination Constitutional: NAD HEENT: PERRLA, moist MMs, sclera anicteric, oral pharynx no lesions Neck: no nodes, no JVD, supple, full ROM Respiratory: no wheezing, no rales, no rhonchi, clear to auscultation bilateral Cardiovascular: RRR, no significant murmur, no rub, gallop Gastrointestinal: soft, non-tender, no distention, positive bowel sounds Musculoskeletal: no edema, pulses present Neurological: non-focal, normal sensation, moves all 4 limbs Psychiatric: normal affect, A&O x 3 Skin: no rash Dx/Plan (1) Acute CHF Code(s): I50.9 - HEART FAILURE, UNSPECIFIED Status: Acute Qualifiers: Congestive heart failure type: systolic Qualified Code(s): I50.21 - Acute systolic (congestive) heart failure (2) Chest pain Code(s): R07.9 - CHEST PAIN, UNSPECIFIED Status: Acute Comment: Last Cath in 2013 with minimal disease per cardiology (3) Chronic systolic CHF (congestive heart failure) Code(s): I50.22 - CHRONIC SYSTOLIC (CONGESTIVE) HEART FAILURE Status: Chronic (4) Paroxysmal A-fib Code(s): I48.0 - PAROXYSMAL ATRIAL FIBRILLATION Status: Chronic (5) Chronic anticoagulation Code(s): Z79.01 - M[facility] (CURRENT) USE OF ANTICOAGULANTS Status: Chronic (6) Nonischemic cardiomyopathy Code(s): I42.8 - OTHER CARDIOMYOPATHIES Status: Chronic (7) HTN (hypertension) Code(s): I10 - ESSENTIAL (PRIMARY) HYPERTENSION Status: Chronic (8) History of DVT of lower extremity Code(s): Z86.718 - PERSONAL HISTORY OF OTHER VENOUS THROMBOSIS AND EMBOLISM Status: Chronic (9) COPD (chronic obstructive pulmonary disease) Status: Chronic (10) HLD (hyperlipidemia) Code(s): E78.5 - HYPERLIPIDEMIA, UNSPECIFIED Status: Chronic Comment: Poor control and noncompliance (11) Seizure disorder Code(s): G40.909 - EPILEPSY, UNSP, NOT INTRACTABLE, WITHOUT STATUS EPILEPTICUS Status: Chronic Comment: Stable on Dilantin. - Plan respiratory therapy, incentive spirometry, out of bed/ambulate, DVT proph w/SCDs clinically improving.will give 1 more dose of zaroxolyn.monitor I/Os. -: increase Coumadin as INR still sub therapeutic.monitor. -: cardiology followuing.cont BB.YESSY controlled. -: am labs * . Review of Systems - Review of Systems Constitutional: negative: Fever, Chills, Sweats, Weakness, Malaise, Other ENT: negative: Ear Pain, Ear Discharge, Nose Pain, Nose Discharge, Nose Congestion, Mouth Pain, Mouth Swelling, Throat Pain, Throat Swelling, Other Respiratory: negative: Cough, Dry, Shortness of Breath, Hemoptysis, SOB with Excertion, Pleuritic Pain, Sputum, Wheezing Cardiovascular: negative: Chest Pain, Palpitations, Orthopnea, Paroxysmal Noc. Dyspnea, Edema, Light Headedness, Other Gastrointestinal: negative: Nausea, Vomiting, Abdominal Pain, Diarrhea, Constipation, Melena, Hematochezia, Other Genitourinary: negative: Dysuria, Frequency, Incontinence, Hematuria, Retention , Other Musculoskeletal: negative: Neck Pain, Shoulder Pain, Arm Pain, Back Pain, Hand Pain, Leg Pain, Foot Pain, Other Neurological: negative: Weakness, Numbness, Incoordination, Change in Speech, Confusion, Seizures, Other - Medications/Allergies Allergies/Adverse Reactions: Allergies Allergy/AdvReac Type Severity Reaction Status Date / Time latex Allergy Mild Severe Verified 09/03/17 16:32 Hives tramadol AdvReac Verified 09/04/17 19:13 Medications: Current Medications Acetaminophen (Tylenol) 650 mg PO Q4H PRN PRN Reason: Headache/Fever or Pain Hydrocodone Bitart/Acetaminophen (Vera 10/325) 1 tab PO Q6H PRN PRN Reason: Moderate Pain (4-6) Last Admin: 09/07/17 07:18 Dose: 1 tab Al Hydroxide/Mg Hydroxide (Maalox) 30 ml PO Q6H PRN PRN Reason: Heartburn or Indigestion Albuterol/Ipratropium (Duoneb) 3 ml NEB [id number] PRN PRN Reason: SOB &/or Wheezing Last Admin: 09/06/17 10:56 Dose: 3 ml Atorvastatin Calcium (Lipitor) 40 mg PO HS [facility] Last Admin: 09/06/17 20:41 Dose: 40 mg Benzonatate (Tessalon) 100 mg PO Q4H PRN PRN Reason: Cough Bisacodyl (Dulcolax) 10 mg PO DAILYPRN PRN PRN Reason: Constipation Calcium Carbonate (Tums) 1,000 mg PO Q4H PRN PRN Reason: Heartburn or Indigestion Clonidine (Catapres) 0.1 mg PO Q4H PRN PRN Reason: Systolic BP > 160 Dextrose/Water (Dextrose 50%) 25 gm SLOW IVP PRN PRN PRN Reason: Hypoglycemia Famotidine (Pepcid) 20 mg PO BID [facility] Last Admin: 09/07/17 08:50 Dose: 20 mg Furosemide (Lasix) 40 mg SLOW IVP 0600,1400 [facility] Last Admin: 09/07/17 05:09 Dose: 40 mg Glucagon (Glucagon) 1 mg IM PRN PRN PRN Reason: Hypoglycemia Hydralazine HCl (Apresoline) 10 mg SLOW IVP Q4H PRN PRN Reason: Systolic BP > 170 Dextrose/Water (D5w) 1,000 mls @ 0 mls/hr IV .Q0M PRN; As Directed PRN Reason: Hypoglycemia Insulin Human Lispro (Humalog) 0 units SC .MODERATE SLIDING SC PRN PRN Reason: Moderate Correctional Scale Insulin Human Lispro (Humalog) 0 units SC .BEDTIME SLIDING SC PRN PRN Reason: Bedtime Correctional Scale Isosorbide Mononitrate (Imdur Er) 30 mg PO DAILY [facility] Last Admin: 09/07/17 08:50 Dose: 30 mg Lisinopril (Zestril) 40 mg PO DAILY [facility] Last Admin: 09/07/17 08:54 Dose: 40 mg Loratadine (Claritin) 10 mg PO DAILYPRN PRN PRN Reason: Sinus Symptoms Last Admin: 09/06/17 14:32 Dose: 10 mg Lorazepam (Ativan) 1 mg PO Q4H PRN PRN Reason: Anxiety/Agitation Last Admin: 09/05/17 11:43 Dose: 1 mg Metolazone (Zaroxolyn) 2.5 mg PO 0830 [facility] Last Admin: 09/07/17 08:49 Dose: 2.5 mg Metoprolol Tartrate (Lopressor) 100 mg PO BID [facility] Last Admin: 09/07/17 08:49 Dose: 100 mg Miscellaneous Medication (Pharmacy To Dose) 0 each PO DAILYPRN PRN PRN Reason: LABS Mometasone Furoate/Formoterol Fumar (Dulera 200 Mcg/5 Mcg Inhaler) 2 puff INH BID-RT [facility] Last Admin: 09/07/17 06:54 Dose: 2 puff Morphine Sulfate (Morphine Sulfate) 2 mg IV Q4H PRN PRN Reason: Severe Pain (7-10) Last Admin: 09/07/17 08:50 Dose: 2 mg Nicotine (Nicoderm Patch) 14 mg TD Q24HR [facility] Last Admin: 09/06/17 11:20 Dose: 14 mg Nitroglycerin (Nitrostat) 0.4 mg SL Q5MIN PRN PRN Reason: Chest Pain Last Admin: 09/06/17 12:48 Dose: 0.4 mg Ondansetron HCl (Zofran) 4 mg IVP Q6H PRN PRN Reason: Nausea/Vomiting Phenytoin Sodium (Dilantin Er) 300 mg PO BID [facility] Last Admin: 09/07/17 08:49 Dose: 300 mg Senna (Senokot) 2 tab PO HSPRN PRN PRN Reason: Constipation Sodium Chloride (Flush - Normal Saline) 10 ml IVF PRN PRN PRN Reason: Saline Flush Last Admin: 09/06/17 08:05 Dose: 10 ml Spironolactone (Aldactone) 25 mg PO QAM-WM [facility] Last Admin: 09/07/17 08:49 Dose: 25 mg Warfarin Sodium (Coumadin) 7.5 mg PO 1700 [facility] Last Admin: 09/06/17 17:45 Dose: 7.5 mg Zolpidem Tartrate (Ambien) 5 mg PO HS PRN PRN Reason: Insomnia Last Admin: 09/06/17 20:48 Dose: 5 mg
[2017-09-07] MEDS: Nicotine 14 MG PATCH TD SCH (13:12)
--- NOTE | 2017-09-07 14:22 | PDOC.CTH ---
<Carlee Villanueva - Last Filed: 09/07/17 14:20> Cardiology Progress Note - Subjective The pt was seen and examined. No overnight events. No cardiac complaints. He still goes outside for smoking - Objective Vital Signs Temp Pulse Resp BP BP BP Pulse Ox 09/07/17 08:54 111/68 09/07/17 08:05 97.6 F 71 16 111/68 96 09/07/17 04:00 97.7 F 70 18 108/70 95 09/07/17 03:33 93 L Weight 266 lb 09/06/17 09/07/17 09/08/17 06:59 06:59 06:59 Intake Total 1260 1378 Output Total 5150 2375 Balance -3890 -997 - Physical Examination General/Neuro: alert & oriented x3 Neck: no JVD present Lungs: CTA (diminished at bases) Heart: other: (Irregular) Abdomen: soft Extremities: other: (No edemas) - Telemetry Telemetry Rhythm: BiV paced with Afib - Labs Result Diagrams: 09/04/17 04:03 09/07/17 05:24 Troponin/CKMB CK-MB (CK-2) 5.8 ng/mL (0-6.6) 09/03/17 10:14 Troponin I 0.031 ng/mL (< 0.028) H 09/04/17 08:49 - Assessment/Plan 1. Acute on Chronic systolic HF - Echo on 09/04/17 showed EF 45-50% and mild TR , MR, and ID.; Stable with RA 2. Non-ischemic CMY with BiV AICD - latest interrogation showed normal 3. Mild CAD - Last Cath in 2013 with minimal disease 4. Chronic Afib - on Coumadin 5. HTN - stable with current medication, BBlocker and MARICHUY; cont. monitor 6. COPD - stable with RA 7. Hyperlipidemia - Lipitor was increased to 40mg daily 8. hx o TIA - stable; on Coumadin 9. tobacco abuse - Smoking education given to the pt 10. Seizure disorder - on Dilantin; managed by PCP 11. Anxiety - hx of drug abuse MAR Reviewed Review of Systems - Review of Systems Constitutional: reports: no symptoms reported EENTM: reports: no symptoms reported Respiratory: reports: no symptoms reported Cardiac (ROS): reports: no symptoms reported ABD/GI: reports: no symptoms reported : reports: no symptoms reported Musculoskeletal: reports: no symptoms reported Skin: reports: no symptoms reported Neurological: reports: no symptoms reported <Isabella Echeverria - Last Filed: 09/07/17 23:31> Cardiology Progress Note - Objective Vital Signs Temp Pulse Resp BP Pulse Ox 09/07/17 20:14 79 18 98 09/07/17 17:02 99.1 F 74 16 111/72 94 L 09/07/17 12:00 98.2 F 72 17 106/72 Weight 266 lb 09/06/17 09/07/17 09/08/17 06:59 06:59 06:59 Intake Total 1260 1378 1200 Output Total 5150 2375 500 Balance -3890 -997 700 - Labs Result Diagrams: 09/04/17 04:03 09/07/17 05:24 Troponin/CKMB CK-MB (CK-2) 5.8 ng/mL (0-6.6) 09/03/17 10:14 Troponin I 0.031 ng/mL (< 0.028) H 09/04/17 08:49 - Assessment/Plan Pt. seen and eval. by me. I agree with the A/P by the [employer]
[2017-09-07] MEDS ORDERED: Warfarin Sodium 10 MG TAB PO SCH (17:00)
[2017-09-07] MEDS: Atorvastatin Calcium 40 MG TAB PO SCH (20:10)
[2017-09-07] MEDS: Zolpidem Tartrate 5 MG TAB PO PRN (21:25)
[2017-09-08] MEDS: Morphine 4 MG/ML VIAL IV PRN ×5 (01:02→21:09)
[2017-09-08] MEDS: HYDROcodone/Acetaminophen 10/325 mg Tablet PO PRN ×3 (03:39→17:42)
[2017-09-08] MEDS: Furosemide 40 MG/4 ML VIAL SLOW IVP SCH (05:08)
[2017-09-08 05:55] LABS: Prothrombin Time 18.6 SEC (12.0-14.7)
[2017-09-08 06:12] LABS: Anion Gap 13 mmol/L (10-20); BUN (Urea Nitrogen) 32 mg/dL (8.9-20.6); Calc. Creatinine Clearance 149 mL/min (70-130); Calcium 9.1 mg/dL (7.8-10.44); Carbon Dioxide 30 mmol/L (22-29); Chloride 97 mmol/L (98-107); Estimated GFR-MDRD 78
[2017-09-08] MEDS: Mometasone/Formoterol 120 PUFF INHALER INH SCH ×2 (07:22→19:20)
[2017-09-08] MEDS ORDERED: Metolazone 2.5 MG TAB PO SCH (08:30)
--- NOTE | 2017-09-08 08:35 | PDOC.PN ---
- Subjective Encounter Start Date: 09/08/17 Encounter Start Time: 08:35 Subjective: feels better but still c/o chest pain when walking long distance. - Objective MAR Reviewed: Yes Vital Signs & Weight: Vital Signs (12 hours) Temp Pulse Resp BP BP Pulse Ox 09/08/17 04:04 98 09/08/17 04:00 98.2 F 70 18 108/73 94 L 09/08/17 00:00 97.8 F 73 18 115/67 95 Weight Weight 266 lb I&O: 09/07/17 09/08/17 09/09/17 06:59 06:59 06:59 Intake Total 1378 1200 Output Total 2375 500 Balance -997 700 Result Diagrams: 09/04/17 04:03 09/08/17 05:20 Additional Labs: Accuchecks 09/08/17 09/07/17 09/07/17 06:22 20:55 16:33 POC Glucose 130 H 130 H 160 H 09/07/17 11:04 POC Glucose 115 H Phys Exam - Physical Examination Constitutional: NAD HEENT: PERRLA, moist MMs, sclera anicteric, oral pharynx no lesions Neck: no nodes, no JVD, supple, full ROM Respiratory: no wheezing, no rales, no rhonchi, clear to auscultation bilateral Cardiovascular: RRR, no significant murmur Gastrointestinal: soft, non-tender, no distention, positive bowel sounds Musculoskeletal: no edema, pulses present Neurological: non-focal, normal sensation, moves all 4 limbs Psychiatric: normal affect, A&O x 3 Skin: no rash Dx/Plan (1) Acute CHF Code(s): I50.9 - HEART FAILURE, UNSPECIFIED Status: Acute Qualifiers: Congestive heart failure type: systolic Qualified Code(s): I50.21 - Acute systolic (congestive) heart failure (2) Chest pain Code(s): R07.9 - CHEST PAIN, UNSPECIFIED Status: Acute Comment: Last Cath in 2013 with minimal disease per cardiology (3) Chronic systolic CHF (congestive heart failure) Code(s): I50.22 - CHRONIC SYSTOLIC (CONGESTIVE) HEART FAILURE Status: Chronic (4) Paroxysmal A-fib Code(s): I48.0 - PAROXYSMAL ATRIAL FIBRILLATION Status: Chronic (5) Chronic anticoagulation Code(s): Z79.01 - [employer] MANAGER (CURRENT) USE OF ANTICOAGULANTS Status: Chronic (6) Nonischemic cardiomyopathy Code(s): I42.8 - OTHER CARDIOMYOPATHIES Status: Chronic (7) HTN (hypertension) Code(s): I10 - ESSENTIAL (PRIMARY) HYPERTENSION Status: Chronic (8) History of DVT of lower extremity Code(s): Z86.718 - PERSONAL HISTORY OF OTHER VENOUS THROMBOSIS AND EMBOLISM Status: Chronic (9) COPD (chronic obstructive pulmonary disease) Status: Chronic (10) HLD (hyperlipidemia) Code(s): E78.5 - HYPERLIPIDEMIA, UNSPECIFIED Status: Chronic Comment: Poor control and noncompliance (11) Seizure disorder Code(s): G40.909 - EPILEPSY, UNSP, NOT INTRACTABLE, WITHOUT STATUS EPILEPTICUS Status: Chronic Comment: Stable on Dilantin. - Plan out of bed/ambulate, DVT proph w/SCDs incraese Zaroxolyn.cont lasix. needs more dialysis -: cardiology following. cont ASA,statin.BB,aldactone,MARICHUY-I,imdur -: Hemodynamically stable.likely home tomorrow -: OP cardiac rehab and HF clinic follow up -: tobacco cessation advised daily.pt agreeable and trying * .coumadin per pharamcy Review of Systems - Medications/Allergies Allergies/Adverse Reactions: Allergies Allergy/AdvReac Type Severity Reaction Status Date / Time latex Allergy Mild Severe Verified 09/03/17 16:32 Hives tramadol AdvReac Verified 09/04/17 19:13 Medications: Current Medications Acetaminophen (Tylenol) 650 mg PO Q4H PRN PRN Reason: Headache/Fever or Pain Hydrocodone Bitart/Acetaminophen (Mico 10/325) 1 tab PO Q6H PRN PRN Reason: Moderate Pain (4-6) Last Admin: 09/08/17 03:39 Dose: 1 tab Al Hydroxide/Mg Hydroxide (Maalox) 30 ml PO Q6H PRN PRN Reason: Heartburn or Indigestion Albuterol/Ipratropium (Duoneb) 3 ml NEB [id number] PRN PRN Reason: SOB &/or Wheezing Last Admin: 09/06/17 10:56 Dose: 3 ml Atorvastatin Calcium (Lipitor) 40 mg PO HS [facility] Last Admin: 09/07/17 20:10 Dose: 40 mg Benzonatate (Tessalon) 100 mg PO Q4H PRN PRN Reason: Cough Bisacodyl (Dulcolax) 10 mg PO DAILYPRN PRN PRN Reason: Constipation Calcium Carbonate (Tums) 1,000 mg PO Q4H PRN PRN Reason: Heartburn or Indigestion Clonidine (Catapres) 0.1 mg PO Q4H PRN PRN Reason: Systolic BP > 160 Dextrose/Water (Dextrose 50%) 25 gm SLOW IVP PRN PRN PRN Reason: Hypoglycemia Famotidine (Pepcid) 20 mg PO BID [facility] Last Admin: 09/07/17 20:09 Dose: 20 mg Furosemide (Lasix) 40 mg SLOW IVP 0600,1400 [facility] Last Admin: 09/08/17 05:08 Dose: 40 mg Glucagon (Glucagon) 1 mg IM PRN PRN PRN Reason: Hypoglycemia Hydralazine HCl (Apresoline) 10 mg SLOW IVP Q4H PRN PRN Reason: Systolic BP > 170 Dextrose/Water (D5w) 1,000 mls @ 0 mls/hr IV .Q0M PRN; As Directed PRN Reason: Hypoglycemia Insulin Human Lispro (Humalog) 0 units SC .MODERATE SLIDING SC PRN PRN Reason: Moderate Correctional Scale Insulin Human Lispro (Humalog) 0 units SC .BEDTIME SLIDING SC PRN PRN Reason: Bedtime Correctional Scale Isosorbide Mononitrate (Imdur Er) 30 mg PO DAILY [facility] Last Admin: 09/07/17 08:50 Dose: 30 mg Lisinopril (Zestril) 40 mg PO DAILY [facility] Last Admin: 09/07/17 08:54 Dose: 40 mg Loratadine (Claritin) 10 mg PO DAILYPRN PRN PRN Reason: Sinus Symptoms Last Admin: 09/06/17 14:32 Dose: 10 mg Lorazepam (Ativan) 1 mg PO Q4H PRN PRN Reason: Anxiety/Agitation Last Admin: 09/05/17 11:43 Dose: 1 mg Metolazone (Zaroxolyn) 5 mg PO 0830 [facility] Metoprolol Tartrate (Lopressor) 100 mg PO BID [facility] Last Admin: 09/07/17 20:09 Dose: 100 mg Miscellaneous Medication (Pharmacy To Dose) 0 each PO DAILYPRN PRN PRN Reason: LABS Mometasone Furoate/Formoterol Fumar (Dulera 200 Mcg/5 Mcg Inhaler) 2 puff INH BID-RT [facility] Last Admin: 09/08/17 07:22 Dose: 2 puff Morphine Sulfate (Morphine Sulfate) 2 mg IV Q4H PRN PRN Reason: Severe Pain (7-10) Last Admin: 09/08/17 05:08 Dose: 2 mg Nicotine (Nicoderm Patch) 14 mg TD Q24HR [facility] Last Admin: 09/07/17 13:12 Dose: 14 mg Nitroglycerin (Nitrostat) 0.4 mg SL Q5MIN PRN PRN Reason: Chest Pain Last Admin: 09/06/17 12:48 Dose: 0.4 mg Ondansetron HCl (Zofran) 4 mg IVP Q6H PRN PRN Reason: Nausea/Vomiting Phenytoin Sodium (Dilantin Er) 300 mg PO BID [facility] Last Admin: 09/07/17 20:09 Dose: 300 mg Senna (Senokot) 2 tab PO HSPRN PRN PRN Reason: Constipation Sodium Chloride (Flush - Normal Saline) 10 ml IVF PRN PRN PRN Reason: Saline Flush Last Admin: 09/08/17 05:10 Dose: 10 ml Spironolactone (Aldactone) 25 mg PO QAM-WM [facility] Last Admin: 09/07/17 08:49 Dose: 25 mg Warfarin Sodium (Coumadin) 10 mg PO 1700 [facility] Last Admin: 09/07/17 17:08 Dose: 10 mg Zolpidem Tartrate (Ambien) 5 mg PO HS PRN PRN Reason: Insomnia Last Admin: 09/07/17 21:25 Dose: 5 mg
[2017-09-08] MEDS: Famotidine 20 MG TAB PO SCH ×2 (10:53→21:05)
[2017-09-08] MEDS: Lisinopril 10 MG TAB PO SCH (10:54)
[2017-09-08] MEDS: Spironolactone 25 MG TAB PO SCH (10:55)
[2017-09-08] MEDS: Metoprolol Tartrate 100 MG TAB PO SCH ×2 (10:56→21:05)
[2017-09-08] MEDS: Metolazone 2.5 MG TAB PO SCH (13:39)
[2017-09-08] MEDS ORDERED: Warfarin Sodium 3 MG TAB PO SCH (17:00)
[2017-09-08] MEDS ORDERED: Warfarin Sodium 7.5 MG TAB PO SCH (17:00)
[2017-09-08] MEDS: Furosemide 80 MG TAB PO SCH ×2 (17:33→18:11)
[2017-09-08] MEDS ORDERED: Digoxin 0.5 MG/2 ML AMP SLOW IVP SCH (18:30)
[2017-09-08] MEDS: Atorvastatin Calcium 40 MG TAB PO SCH (21:05)
[2017-09-08] MEDS: Zolpidem Tartrate 5 MG TAB PO PRN (21:09)
[2017-09-09] MEDS: HYDROcodone/Acetaminophen 10/325 mg Tablet PO PRN ×2 (02:39→09:25)
[2017-09-09] MEDS: Morphine 4 MG/ML VIAL IV PRN ×3 (02:40→11:14)
[2017-09-09 04:46] VITALS: BMI 36.5
[2017-09-09 05:55] LABS: Prothrombin Time 20.5 SEC (12.0-14.7)
[2017-09-09 06:17] LABS: Anion Gap 16 mmol/L (10-20); BUN (Urea Nitrogen) 28 mg/dL (8.9-20.6); Calc. Creatinine Clearance 158 mL/min (70-130); Calcium 9.3 mg/dL (7.8-10.44); Carbon Dioxide 27 mmol/L (22-29); Chloride 95 mmol/L (98-107); Estimated GFR-MDRD 85
[2017-09-09] MEDS: Mometasone/Formoterol 120 PUFF INHALER INH SCH (07:14)
[2017-09-09] MEDS: Metoprolol Tartrate 100 MG TAB PO SCH (08:34)
[2017-09-09] MEDS: Famotidine 20 MG TAB PO SCH (08:34)
[2017-09-09] MEDS: Spironolactone 25 MG TAB PO SCH (08:35)
[2017-09-09] MEDS: Furosemide 80 MG TAB PO SCH (08:35)
[2017-09-09] MEDS ORDERED: Digoxin 0.25 MG TAB PO SCH (09:00)
[2017-09-09 11:13] VITALS: BP 111/79; TEMP 97.6
[2017-09-09] MEDS: Lisinopril 10 MG TAB PO SCH (11:13)
--- NOTE | 2017-09-09 18:41 | DIS ---
DATE OF ADMISSION: 09/03/2017 DATE OF DISCHARGE: 09/09/2017 CONDITION AT THE TIME OF DISCHARGE: Stable and improved. DISCHARGE DIAGNOSES: 1. Acute congestive heart failure, likely systolic and diastolic. 2. Chest pain, resolved, unlikely acute coronary syndrome. 3. History of chronic systolic congestive heart failure. 4. Paroxysmal atrial fibrillation, on chronic anticoagulation with Coumadin. 5. History of nonischemic cardiomyopathy. 6. Hypertension. 7. History of deep venous thrombosis in the lower extremity. 8. Chronic obstructive pulmonary disease. 9. Dyslipidemia. 10. Seizure disorder. 11. Moderate obesity. 12. Tobacco abuse. DISCHARGE MEDICATIONS: As follows: Warfarin 5 mg and 7.5 mg on alternate days. The patient follow s up with a primary care physician for INR management. Aldactone 25 mg daily, isosorbide mononitrat e 30 mg daily, lovastatin 40 mg daily, amlodipine 5 mg daily, lisinopril 40 mg daily, phenytoin 300 mg p.o. b.i.d., Glucophage 500 mg p.o. b.i.d., potassium chloride 20 mEq daily, Lopressor 100 mg p.o . b.i.d., Lasix 80 mg p.o. b.i.d., digoxin 0.25 mg p.o. daily. DISCHARGE DISPOSITION: Home. PRIMARY CARE PHYSICIAN: [facility]. The patient has appointment on 09/10/2017 at 2:00 p .m. DISCHARGE FOLLOWUP: With outpatient cardiac rehabilitation and Heart Failure Clinic as well as Card iology, Dr. Nish Meyers. PROCEDURES DONE IN THE HOSPITAL: Include transthoracic echocardiogram, which showed ejection fracti on of 45% to 50% and atrial fibrillation. CONSULTATIONS: Cardiology, Dr. Echeverria, Dr. Murphy and Dr. Meyers. HISTORY OF PRESENT ILLNESS: Mr. Riggins is a pleasant 52-year-old male with past medical history of c hronic systolic congestive heart failure and chronic atrial fibrillation on chronic anticoagulation along with hypertension, who came to the emergency room with the complaints of chest pain. He was h emodynamically stable upon presentation and did not have any evidence to suggest ACS. He was admitt ed under observation status in the beginning to rule out ACS. Cardiology consult was requested at t he time of admission. Please see admission history and physical for further details. HOSPITAL COURSE: The patient was seen by Cardiology. Initially Dr. Murphy saw the patient and his recommendation was that the patient has acute congestive heart failure. He was given IV diuretics a t the time of admission and they were continued at this time. Stress test for deferred at this time as per Cardiology recommendations. The patient had slow diuresis. He has seen Dr. Meyers in the past. So, Dr. Meyers was also following him along in the hospital. His blood pressure medicatio ns were adjusted as well as his diuretics. Eventually, he was hemodynamically stable and was having improvement in his symptoms. On the day of discharge, the patient is back to his baseline. He is walking up and down in the brown ways and going downstairs to walk and smoke without the use of oxygen. He is cleared by Cardiology for discharge. Tobacco abuse counseling was provided with the patient and the patient is trying to smoke less than before. Medication reconciliation was done and prescriptions were provided. PHYSICAL EXAMINATION: The patient was seen and examined prior to discharge and his physical examina tion include; VITAL SIGNS: Temperature 97.6, pulse of 71, respirations 18, saturating 94% on room air, blood pres sure 111/79. GENERAL: No acute distress, awake, alert, oriented x3. CHEST: Clear to auscultation without any wheezing, rales or rhonchi. Rhythm is regular without any murmur, rubs or gallops. ABDOMEN: Soft, nontender, nondistended with positive bowel sounds. The patient is instructed to follow up with his INR Clinic. On the day of discharge, his INR is 1.7 . Pharmacy was managing warfarin while in the hospital. He will also follow with outpatient cardia c rehabilitation as well as Heart Failure Clinic and Cardiology. All questions were answered. The patient verbalized understanding.
== END 2017-09-09 11:32 | disposition home or self-care (01) | DRG 293 ==
LOC: ERS 09:32 → 2SW 13:54 → OBSVTOIN 13:54 → 2NO 09-04 17:26
PROVIDERS: ADMIT Internal Medicine; ATTEND Internal Medicine
DX: I11.0 Hypertensive heart disease with heart failure (principal); I08.1 Rheumatic disorders of both mitral and tricuspid valves; I42.9 Cardiomyopathy, unspecified; Z79.01 Long term (current) use of anticoagulants; I48.0 Paroxysmal atrial fibrillation; J44.9 Chronic obstructive pulmonary disease, unspecified; G40.909 Epilepsy, unspecified, not intractable, without status epilepticus; E11.9 Type 2 diabetes mellitus without complications; Z86.19 Personal history of other infectious and parasitic diseases; I50.43 Acute on chronic combined systolic (congestive) and diastolic (congestive) heart failure; Z86.718 Personal history of other venous thrombosis and embolism; Z86.73 Personal history of transient ischemic attack (TIA), and cerebral infarction without residual deficits; Z86.711 Personal history of pulmonary embolism; Z95.810 Presence of automatic (implantable) cardiac defibrillator; Z72.0 Tobacco use; E78.5 Hyperlipidemia, unspecified; F10.10 Alcohol abuse, uncomplicated; F19.10 Other psychoactive substance abuse, uncomplicated; E66.9 Obesity, unspecified; I25.10 Atherosclerotic heart disease of native coronary artery without angina pectoris; F41.9 Anxiety disorder, unspecified; Z68.36 Body mass index [BMI] 36.0-36.9, adult
CPT/HCPCS: 36415; 36416; 71010; 80048; 80053; 80061; 80185; 80306; 80307; 81003; 82553; 83880; 84484; 85025; 85610; 85730; 93005; 93306; 93798; 94640; 94760; 96361; 96374; 99406; A4216; J1160; J1940; J2270; J2274; J7620

== ENCOUNTER 2017-09-13 06:49 | Emergency (ER) | payer SELFPAY ==
[2017-09-13 07:45] LABS: #Basophils 0.1 thou/uL (0.0-0.2); #Eosinphils 0.2 thou/uL (0.0-0.7); #Lymphocytes 2.1 thou/uL (1.20-3.40); #Monocytes 1.2 thou/uL (0.11-0.59); #Neutrophils 5.9 thou/uL (1.40-6.50); %Basophils 0.7 % (0.0-1.0); %Eosinophils 1.7 % (0.0-10.0); %Lymphocytes 22.5 % (21.0-51.0); %Monocytes 12.7 % (0.0-10.0); Mean Platelet Volume 7.2 fL (7.4-10.4); Red Blood Cell (RBC) Count 4.62 mill/uL (4.70-6.10); White Blood Cell (WBC) Count 9.5 thou/uL (4.8-10.8)
[2017-09-13] MEDS ORDERED: Morphine 4 MG/ML VIAL ONE (07:51)
[2017-09-13 08:18] LABS: Prothrombin Time 28.6 SEC (12.0-14.7)
[2017-09-13 09:21] LABS: ALT (SGPT) 59 U/L (8-55); AST (SGOT) 51 U/L (5-34); Alkaline Phosphatase 92 U/L (40-150); Anion Gap 14 mmol/L (10-20); BUN (Urea Nitrogen) 23 mg/dL (8.9-20.6); Bilirubin, Total 0.3 mg/dL (0.2-1.2); Calc. Creatinine Clearance 0 mL/min (70-130); Carbon Dioxide 27 mmol/L (22-29); Chloride 99 mmol/L (98-107); Estimated GFR-MDRD Greater than 90; Globulin 3.4 g/dL (2.4-3.5); Protein, Total 6.9 g/dL (6.0-8.3)
[2017-09-13 09:22] LABS: Digoxin 0.74 ng/mL (0.8-2.0)
--- NOTE | 2017-09-13 11:57 | ULT ---
BILATERAL LOWER EXTREMITY VENOUS DUPLEX EXAM: Date: 09/13/17 HISTORY: Bilateral leg pain x2 days. History of deep venous thrombosis. FINDINGS: Real-time color Doppler of right and left lower extremity was performed from groin to calf. This incl udes evaluation of the common femoral, superficial and profunda femoral, saphenous, popliteal, and tr ifurcation veins. This shows patent deep venous systems bilaterally. There is normal compressibility and augmentation. There is no evidence of deep venous thrombosis. IMPRESSION: No evidence of deep venous thrombosis of either lower extremity. POS: [facility]
== END 2017-09-13 10:45 | disposition home or self-care (01) ==
LOC: ERS 06:49 → EEVIPCON 06:49 → ERS 10:45
DX: M25.561 Pain in right knee (principal); M25.562 Pain in left knee; I25.2 Old myocardial infarction; I11.0 Hypertensive heart disease with heart failure; I50.9 Heart failure, unspecified; I48.91 Unspecified atrial fibrillation; J44.9 Chronic obstructive pulmonary disease, unspecified; F41.9 Anxiety disorder, unspecified; F32.9 Major depressive disorder, single episode, unspecified; F17.210 Nicotine dependence, cigarettes, uncomplicated; Z86.73 Personal history of transient ischemic attack (TIA), and cerebral infarction without residual deficits; Z79.01 Long term (current) use of anticoagulants; Z79.899 Other long term (current) drug therapy; Z79.84 Long term (current) use of oral hypoglycemic drugs
CPT/HCPCS: 80053; 80162; 85025; 85610; 93005; 93970; 96374; 99406; J2270

== ENCOUNTER 2017-09-27 17:13 | Observation (INO) | payer SELFPAY ==
[2017-09-27 17:50] LABS: #Eosinphils 0.1 thou/uL (0.0-0.7); #Lymphocytes 1.9 thou/uL (1.20-3.40); #Monocytes 0.8 thou/uL (0.11-0.59); #Neutrophils 5.4 thou/uL (1.40-6.50); %Basophils 0.5 % (0.0-1.0); %Eosinophils 1.4 % (0.0-10.0); %Lymphocytes 23.4 % (21.0-51.0); %Monocytes 9.3 % (0.0-10.0); Hematocrit 46.3 % (42.0-52.0); Mean Platelet Volume 6.7 fL (7.4-10.4); Red Blood Cell (RBC) Count 4.59 mill/uL (4.70-6.10); White Blood Cell (WBC) Count 8.2 thou/uL (4.8-10.8)
[2017-09-27 17:57] LABS: Prothrombin Time 32.2 SEC (12.0-14.7)
[2017-09-27 17:58] LABS: PTT 58.4 SEC (22.9-36.1)
[2017-09-27] MEDS ORDERED: Nitroglycerin 2% Ointment 1 INCH/1 GM Packet ONE (18:10)
[2017-09-27 18:14] LABS: ALT (SGPT) 26 U/L (8-55); AST (SGOT) 24 U/L (5-34); Alkaline Phosphatase 97 U/L (40-150); Anion Gap 17 mmol/L (10-20); BUN (Urea Nitrogen) 11 mg/dL (8.9-20.6); Bilirubin, Total 0.4 mg/dL (0.2-1.2); CK (CPK) 118 U/L (30-200); Calc. Creatinine Clearance 0 mL/min (70-130); Carbon Dioxide 24 mmol/L (22-29); Chloride 97 mmol/L (98-107); Estimated GFR-MDRD 87; Globulin 3.3 g/dL (2.4-3.5); Lipase 43 U/L (8-78)
[2017-09-27 18:18] LABS: Troponin I 0.042 ng/mL (< 0.028)
--- NOTE | 2017-09-27 18:23 | RAD ---
AP VIEW OF THE CHEST: 09/27/17 INDICATION: Chest pain. COMPARISON: Prior exam dated 09/03/17. IMPRESSION: Stable cardiomegaly and AICD. No acute air space opacity, pleural effusion or pneumothorax is evident . Osseous structures are similar. POS: [facility]
[2017-09-27 19:04] LABS: Digoxin 0.86 ng/mL (0.8-2.0)
[2017-09-27] MEDS ORDERED: Morphine 4 MG/ML VIAL ONE (19:58)
[2017-09-27 21:21] LABS: Troponin I 0.045 ng/mL (< 0.028)
[2017-09-27 21:31] VITALS: BMI 36.3
[2017-09-27] MEDS ORDERED: Sodium Chloride 0.9% 1,000 ML IV SCH (22:03)
[2017-09-27] MEDS ORDERED: Ondansetron HCl/PF 4 MG/2 ML Vial IVP PRN ×2 (22:03→23:50)
[2017-09-27] MEDS ORDERED: Ondansetron ODT 4 MG TAB SL PRN (22:03)
[2017-09-27] MEDS ORDERED: Nitroglycerin 0.4 MG TAB 1 EACH PO PRN (22:55)
[2017-09-27] MEDS: Nitroglycerin 0.4 MG TAB (25 Tab Bottle) SL PRN ×3 (23:12→23:22)
[2017-09-27] MEDS ORDERED: Albuterol Sulfate 1.25 MG/3 ML NEB NEB PRN (23:49)
[2017-09-27] MEDS ORDERED: PROVENTIL INHALER 6.7 G (200 INHALATIONS) INH PRN (23:49)
[2017-09-27] MEDS ORDERED: Ondansetron ODT 4 MG TAB PO PRN (23:50)
[2017-09-27] MEDS ORDERED: Senokot 8.6 MG TAB PO PRN (23:50)
[2017-09-27] MEDS ORDERED: Acetaminophen 325 MG TAB PO PRN (23:50)
[2017-09-28 00:04] LABS: Troponin I 0.064 ng/mL (< 0.028)
--- NOTE | 2017-09-28 01:28 | HP ---
DATE OF ADMISSION: 09/27/2017 The patient was seen and examined on 09/27/2017. PRIMARY HEAD INSULATION BOARD SAW OPERATOR: Dr. Nish Meyers. PRIMARY CARE PHYSICIAN: Karly Hill MD CHIEF COMPLAINT: Chest discomfort. HISTORY OF PRESENT ILLNESS: Patient is a 52-year-old male with chronic systolic heart failure, nonis chemic cardiomyopathy status post AICD, mild coronary artery disease with last cardiac catheterizatio n in 2013, chronic atrial fibrillation on anticoagulation, hypertension, and COPD, [facility]. He was discharged from this facility on 09/09/2017. He was anaid gnosed with congestive heart failure exacerbation. Patient states that he monitors his fluid on a da diamond basis and denies significant weight gain recently. The patient presented to the emergency room with chest discomfort that is precordial, sharp in nature without any aggravating or relieving factor. He denies recent immobilization or travel. He is comp liant with anti-coagulation. He had mild cough without any production. He denies any shortness of b reath, lightheadedness, dizziness, or syncope. No fever or chills reported. No heartburn or dyspeps ia reported. In the emergency room, initial vital signs showed a temperature of 99, respiration of 30, pulse rate of 72 with blood pressure 128/89 with O2 saturation 95% on room air. His chest x-ray was negative fo r acute findings. His EKG showed paced rhythm. His initial troponins were in the indeterminate rang e at 0.042. He received morphine 4 mg with aspirin and 1 inch nitro patch was placed. PAST MEDICAL HISTORY: 1. Recent hospitalization for congestive heart failure exacerbation. 2. Chronic systolic and diastolic heart failure, status post AICD. Last echocardiogram a month ago showed ejection fraction 45%-50%. 3. Nonischemic cardiomyopathy. 4. Mild coronary artery disease with last cardiac catheterization in 2013. 5. Chronic atrial fibrillation on anticoagulation. 6. Hypertension. 7. Chronic obstructive pulmonary disease. 8. Hyperlipidemia. 9. Tobacco dependence. 10. History of TIA. 11. Seizure disorder. 12. Anxiety. 13. Obesity with a BMI at 36.4. 14. History of DVT in the past. PAST SURGICAL HISTORY: 1. Cardiac ablation for SVT. 2. AICD placement. ALLERGIES: Patient is allergic to LATEX. CURRENT HOME MEDICATIONS: Lasix 80 mg twice a day, albuterol inhaler as needed, albuterol nebulizati on as needed, amlodipine 5 mg daily, digoxin 0.25 mg daily, Flonase nasal spray daily, [place] as neede d, Imdur ER 30 mg daily, lovastatin 40 mg daily, metformin 500 mg b.i.d., Lopressor 100 mg b.i.d., Di lantin 300 mg b.i.d., potassium chloride 20 mEq daily, Aldactone 25 mg daily, Coumadin as directed. SOCIAL HISTORY: He smokes cigars on and off. He has a history of 15-20 pack year smoking. He drink s on and off. He has a history of cocaine, amphetamines, and cannabis in the past. FAMILY HISTORY: Positive for blood clots and heart disease. REVIEW OF SYSTEMS: The following complete review of systems was negative, unless otherwise mentioned in the HPI or below: Constitutional: Weight loss or gain, ability to conduct usual activities. Sk in: Rash, itching. Eyes: Double vision, pain. ENT/Mouth: Nose bleeding, neck stiffness, pain, te nderness. Cardiovascular: Palpitations, dyspnea on exertion, orthopnea. Respiratory: Shortness of breath, wheezing, cough, hemoptysis, fever or night sweats. Gastrointestinal: Poor appetite, abdom inal pain, heartburn, nausea, vomiting, constipation, or diarrhea. Genitourinary: Urgency, frequenc y, dysuria, nocturia. Musculoskeletal: Pain, swelling. Neurologic/Psychiatric: Anxiety, depressio n. Allergy/Immunologic: Skin rash, bleeding tendency. PHYSICAL EXAMINATION: VITAL SIGNS: As discussed above, his last temperature was 98.5. GENERAL: A 52-year-old male in no apparent distress, chest discomfort has improved. HEENT: Atraumatic, normocephalic, sclerae are anicteric. Moist mucous membranes. No oral lesion. NECK: Supple, no significant JVD elevation noted. No carotid bruits. LUNGS: Showed scattered rales at bases. No wheezing or rhonchi. Lungs were symmetrical. HEART: S1, S2 present. Regular rate and rhythm. No rubs or gallops appreciated. No reproducible c hest wall tenderness. ABDOMEN: Distended, questionable shifting dullness, no rebound, guarding, no costovertebral angle te nderness. EXTREMITIES: 1+ edema in bilateral lower extremities. No calf tenderness. SKIN: Warm and dry. LYMPH NODES: No palpable lymph nodes in the neck. PERIPHERAL VASCULAR: Radial pulses palpable bilaterally. MUSCULOSKELETAL: No joint swelling or tenderness. LABORATORY FINDINGS: 1. CBC showed WBC 8.2 with hemoglobin 15.8, hematocrit 46.3, platelet 231. INR of 3.0. Chemistries showed sodium 134, potassium 3.9, chloride 97, bicarbonate 24, BUN 11, creatinine 0.92. 2. Troponins x3 in the indeterminate range. BNP 81.9. Digoxin level of 0.86. 3. Chest x-ray by my review as discussed above. EKG by my review as discussed above. IMPRESSION: 1. Chest discomfort, rule out acute coronary syndrome. 2. Acute on chronic systolic/diastolic heart failure exacerbation. 3. Chronic atrial fibrillation on anticoagulation. 4. Nonischemic cardiomyopathy. 5. Mild coronary artery disease. The last cardiac catheterization in 2013. 6. Hypertension. 7. Chronic obstructive pulmonary disease. 8. Hyperlipidemia. 9. Ongoing tobacco abuse. 10. History of transient ischemic attack. 11. Seizure disorder. 12. Anxiety. 13. History of deep vein thrombosis. 14. Mild hyponatremia. 15. Indeterminate troponins, probably secondary to congestive heart failure exacerbation. 16. Obesity with a BMI 36.4. PLAN: The patient will be monitored on the telemetry unit. We will start him on IV diuretics for co ngestive heart failure exacerbation. His troponins are probably elevated due to congestive heart yonas lure exacerbation. We will also get an abdominal ultrasound to evaluate for ascites. We will add fl uid restriction. Patient was extensively counseled on congestive heart failure. We will resume Coum sienna and other home medications. We will recheck labs in a.m. We will increase the dose of potassiu m while on IV Lasix. We will hold further cardiac testing due to congestive heart failure. He was a dvised to follow up with Dr. Meyers as outpatient.
[2017-09-28] MEDS: Furosemide 100 MG/10 ML VIAL SLOW IVP SCH ×2 (04:00→13:36)
[2017-09-28 04:52] LABS: #Basophils 0.1 thou/uL (0.0-0.2); #Eosinphils 0.1 thou/uL (0.0-0.7); #Lymphocytes 2.3 thou/uL (1.20-3.40); #Monocytes 0.8 thou/uL (0.11-0.59); #Neutrophils 4.5 thou/uL (1.40-6.50); %Basophils 0.8 % (0.0-1.0); %Eosinophils 1.8 % (0.0-10.0); %Lymphocytes 29.4 % (21.0-51.0); %Monocytes 10.6 % (0.0-10.0); Hematocrit 44.9 % (42.0-52.0); Mean Platelet Volume 6.6 fL (7.4-10.4); Red Blood Cell (RBC) Count 4.45 mill/uL (4.70-6.10); White Blood Cell (WBC) Count 7.8 thou/uL (4.8-10.8)
[2017-09-28 04:58] LABS: Prothrombin Time 30.9 SEC (12.0-14.7)
[2017-09-28 05:04] LABS: Anion Gap 13 mmol/L (10-20); BUN (Urea Nitrogen) 14 mg/dL (8.9-20.6); Calc. Creatinine Clearance 172 mL/min (70-130); Carbon Dioxide 28 mmol/L (22-29); Chloride 98 mmol/L (98-107); Estimated GFR-MDRD Greater than 90; Phosphorus 3.5 mg/dL (2.3-4.7)
[2017-09-28] MEDS: HYDROcodone/Acetaminophen 10/325 mg Tablet PO PRN ×4 (08:08→20:21)
[2017-09-28] MEDS ORDERED: Furosemide 80 MG TAB PO SCH (09:00)
[2017-09-28] MEDS ORDERED: Potassium Chloride 20 MEQ TAB PO SCH (09:00)
[2017-09-28] MEDS: Metoprolol Tartrate 100 MG TAB PO SCH ×2 (10:11→20:20)
[2017-09-28] MEDS: Famotidine 20 MG TAB PO SCH ×2 (10:11→20:21)
[2017-09-28] MEDS: Potassium Chloride 20 MEQ TAB PO SCH ×2 (10:11→16:05)
[2017-09-28] MEDS: Spironolactone 25 MG TAB PO SCH (10:11)
[2017-09-28] MEDS: Amlodipine 5 MG TAB PO SCH (10:11)
[2017-09-28] MEDS: Digoxin 0.25 MG TAB PO SCH (10:12)
[2017-09-28] MEDS: Docusate 100 MG CAP PO SCH ×2 (10:12→20:22)
[2017-09-28] MEDS: Fluticasone Propionate Nasal Spray 16 gm Bottle NASAL SCH (13:37)
--- NOTE | 2017-09-28 14:46 | ULT ---
ABDOMINAL ULTRASOUND: History: Abdominal pain, distention. FINDINGS: Real-time imaging of the upper abdomen demonstrates a normal appearing gallbladder. The common duct is normal in caliber measuring 3 mm. Visualized liver parenchymal is of increased echogenicity and me asures 17.5 cm in length. The spleen measures 10.5 cm. Right and left kidneys are normal in size and not obstructed. The pancreas is obscured. Portions of t he abdominal aorta and IVC are also obscured. IMPRESSION: 1. No evidence of gallstones. 2. No ascites demonstrated. 3. Fatty changed of the liver. POS: [facility]
--- NOTE | 2017-09-28 14:52 | CON ---
DATE OF CONSULTATION: 09/28/2017 REASON FOR CONSULTATION: Chest pain. HISTORY OF PRESENT ILLNESS: Mr. Riggins is a 52-year-old gentleman who [facility] He has a history of nonischemic cardiomyopathy diagnosed in 2013. He had a recent hospitaliza tion two weeks ago for similar symptoms. He states he had chest pain at that time. He was seen, david luated and discharged. He then returns with similar symptoms. He states the pain lasted for 1 hour. It was a substernal with arm radiation. No ameliorating, exacerbating, or precipitating factors pr esent. PAST MEDICAL HISTORY: Nonischemic cardiomyopathy with last LVEF 45-50%, atrial fibrillation, hyperte nsion, COPD, hyperlipidemia, seizure disorder, TIA, continued tobacco use, morbid obesity, DVT, AICD placement, SVT ablation. ALLERGIES: LATEX. HOME MEDICATIONS: Include diltiazem, Coumadin, potassium, lovastatin, metformin, digoxin, Flonase, a lbuterol, Lasix, amlodipine, [place], Lopressor, and Aldactone. SOCIAL HISTORY: Continues to smoke. REVIEW OF SYSTEMS: Ten point review of systems is reviewed and as above, otherwise negative. PHYSICAL EXAMINATION: VITAL SIGNS: Blood pressure 114/64, pulse 74, temperature afebrile. GENERAL: Patient is a pleasant male who is in no acute distress. The patient appears his stated age . NEUROLOGIC: The patient is alert and oriented times 3 with no focal neurologic deficits. HEENT: Sclerae without icterus. Mouth has moist mucous membranes with normal pallor. NECK: No JVD. Carotid upstroke brisk. No bruits bilaterally. LUNGS: Crackles noted bilaterally. BACK: No scoliosis or kyphosis. CARDIAC: Regular rate and rhythm with normal S1 and S2. No S3 or S4 noted. No significant rubs, m urmurs, thrills, or gallops noted throughout the precordium. PMI is not displaced. There is no para sternal heave. ABDOMEN: Soft, nontender, nondistended. No peritoneal signs present. No hepatosplenomegaly. No ab normal striae. EXTREMITIES: 2+ femoral and 2+ dorsalis pedis pulses. No cyanosis, clubbing, or edema. SKIN: No gross abnormalities. PERTINENT LABS: Hemoglobin 15.3, creatinine 0.86. Peak troponin 0.064. BNP of 81. INR 2.8. IMPRESSION: 1. Recurrent chest pain. 2. History of nonischemic cardiomyopathy. 3. Atrial fibrillation. RECOMMENDATIONS: Mr. Riggins's situation is certainly difficult. He does have a history of nonischemi c cardiomyopathy diagnosed in 2013. This is a recurrent hospitalization for similar symptoms. Optio ns were given including coronary angiography versus stress study versus medical therapy. I do feel m edical therapy should be last on the list. A noninvasive stress study may be reasonable, although wo uld be concerned about recurrent hospitalizations. He may be better off proceeding with angiography to answer the question given recurrent hospitalizations. His INR is 2.8 and would have to reassess i n a.m. I discussed coronary angiography with possible PCI with Mr. Riggins. The risks of the procedu re were also discussed. The risks of the procedure include but are not limited to the following: De ath, stroke, WI, need for emergency surgery, loss of limb, bleeding, and infection, as well as a reac tion to the dye causing kidney failure and needing long-term dialysis. I also discussed the risks of PCI to include all of the above including coronary dissection and perforation in addition to acute s tent thrombosis and restenosis. All questions about the procedure were answered. Given the above, t he patient agreed to proceed with coronary angiography and possible PCI. We will defer to Dr. Benny cartagena in a.m. We will keep n.p.o. after midnight.
--- NOTE | 2017-09-28 15:10 | PDOC.PN ---
- Subjective Encounter Start Date: 09/28/17 Encounter Start Time: 15:08 Patient seen and examined. No new complaints. No overnight events - Objective Resuscitation Status: Resuscitation Status FULL:Full Resuscitation MAR Reviewed: Yes Vital Signs & Weight: Vital Signs (12 hours) Temp Pulse Resp BP BP Pulse Ox 09/28/17 11:46 98.3 F 74 16 114/64 94 L 09/28/17 10:12 71 09/28/17 10:11 71 119/68 09/28/17 07:50 98.3 F 71 16 09/28/17 07:29 98.3 F 71 18 119/68 96 09/28/17 03:56 98.2 F 77 22 H 134/88 95 Weight Weight 260 lb 12.8 oz I&O: 09/27/17 09/28/17 09/29/17 06:59 06:59 06:59 Intake Total 1000 256 Output Total 200 1050 Balance 800 -794 Result Diagrams: 09/28/17 03:58 09/28/17 03:58 Additional Labs: Accuchecks 09/27/17 21:41 POC Glucose 111 H Phys Exam - Physical Examination Constitutional: NAD HEENT: PERRLA Neck: no JVD Respiratory: no wheezing Cardiovascular: no significant murmur Gastrointestinal: non-tender Musculoskeletal: pulses present Neurological: moves all 4 limbs Psychiatric: A&O x 3 Dx/Plan (1) Chest pain Code(s): R07.9 - CHEST PAIN, UNSPECIFIED Status: Acute (2) CHF (congestive heart failure) Code(s): I50.9 - HEART FAILURE, UNSPECIFIED Status: Chronic Comment: ef 45% mixed diastolic and systolic failure (3) COPD (chronic obstructive pulmonary disease) Status: Chronic (4) Chronic anticoagulation Code(s): Z79.01 - ORTHOPHOTOGRAPHY TECHNICIAN (CURRENT) USE OF ANTICOAGULANTS Status: Chronic (5) HTN (hypertension) Code(s): I10 - ESSENTIAL (PRIMARY) HYPERTENSION Status: Chronic (6) Nonischemic cardiomyopathy Code(s): I42.8 - OTHER CARDIOMYOPATHIES Status: Chronic (7) Paroxysmal A-fib Code(s): I48.0 - PAROXYSMAL ATRIAL FIBRILLATION Status: Chronic (8) Seizure disorder Code(s): G40.909 - EPILEPSY, UNSP, NOT INTRACTABLE, WITHOUT STATUS EPILEPTICUS Status: Chronic Comment: Stable on Dilantin. (9) Tobacco abuse Code(s): Z72.0 - TOBACCO USE Status: Chronic - Plan * f/u card plan * cont current mx
[2017-09-28] MEDS: Morphine PF 1 MG/ML SYR IVP PRN ×2 (16:04→22:08)
[2017-09-28] MEDS ORDERED: Warfarin Sodium 5 MG TAB PO SCH (17:00)
[2017-09-28] MEDS ORDERED: Atorvastatin Calcium 10 MG TAB PO SCH (21:00)
[2017-09-29] MEDS: HYDROcodone/Acetaminophen 10/325 mg Tablet PO PRN ×3 (03:16→15:08)
[2017-09-29 04:55] LABS: Hematocrit 44.5 % (42.0-52.0)
[2017-09-29 05:02] LABS: Prothrombin Time 20.7 SEC (12.0-14.7)
[2017-09-29] MEDS: Morphine PF 1 MG/ML SYR IVP PRN ×3 (05:16→17:36)
[2017-09-29] MEDS: Furosemide 100 MG/10 ML VIAL SLOW IVP SCH ×2 (05:19→14:33)
[2017-09-29] MEDS: Digoxin 0.25 MG TAB PO SCH (09:17)
[2017-09-29] MEDS: Spironolactone 25 MG TAB PO SCH (09:18)
[2017-09-29] MEDS: Metoprolol Tartrate 100 MG TAB PO SCH (09:18)
[2017-09-29] MEDS: Potassium Chloride 20 MEQ TAB PO SCH ×2 (09:18→18:29)
[2017-09-29] MEDS: Famotidine 20 MG TAB PO SCH (09:18)
[2017-09-29] MEDS: Amlodipine 5 MG TAB PO SCH (09:19)
[2017-09-29] MEDS: Docusate 100 MG CAP PO SCH (09:19)
[2017-09-29] MEDS: Fluticasone Propionate Nasal Spray 16 gm Bottle NASAL SCH (09:22)
[2017-09-29] MEDS ORDERED: Sodium Chloride 0.9% 1,000 ML IV SCH ×2 (10:00→14:17)
[2017-09-29] MEDS ORDERED: Communication Order-Pharmacy FS SCH (10:00)
[2017-09-29 11:28] LABS: Prothrombin Time 17.5 SEC (12.0-14.7)
[2017-09-29] MEDS ORDERED: Heparin 1000 UNIT/NS 500ML(OR) 1,000 ML ONE (11:39)
[2017-09-29] MEDS ORDERED: Midazolam HCl 2 mg/2 ml Vial ONE (12:22)
[2017-09-29] MEDS ORDERED: Heparin 10,000 UNITS/1 ML VIAL ONE (12:22)
[2017-09-29] MEDS ORDERED: Protamine Sulfate 50 MG/5 ML VIAL ONE (12:48)
[2017-09-29 13:22] VITALS: TEMP 98.2
--- NOTE | 2017-09-29 14:09 | PDOC.PN ---
- Subjective Encounter Start Date: 09/29/17 Encounter Start Time: 14:08 Patient seen and examined. No new complaints. No overnight events - Objective Resuscitation Status: Resuscitation Status FULL:Full Resuscitation MAR Reviewed: Yes Vital Signs & Weight: Vital Signs (12 hours) Temp Pulse Resp BP Pulse Ox 09/29/17 13:16 98.2 F 69 16 110/77 93 L 09/29/17 11:22 97.1 F L 76 20 123/84 92 L 09/29/17 09:19 70 09/29/17 09:17 70 09/29/17 07:42 97.7 F 70 18 09/29/17 07:24 97.6 F 86 20 108/77 95 09/29/17 04:34 92 L 09/29/17 03:18 97.7 F 70 18 111/82 92 L Weight Weight 261 lb 11.2 oz I&O: 09/28/17 09/29/17 09/30/17 06:59 06:59 06:59 Intake Total 1000 796 Output Total 200 5565 775 Balance 460 -9555 -232 Result Diagrams: 09/29/17 04:09 09/28/17 03:58 Phys Exam - Physical Examination Constitutional: NAD HEENT: PERRLA Neck: no JVD Respiratory: no wheezing Cardiovascular: no significant murmur Gastrointestinal: non-tender Musculoskeletal: pulses present Neurological: moves all 4 limbs Psychiatric: A&O x 3 Dx/Plan (1) Chest pain Code(s): R07.9 - CHEST PAIN, UNSPECIFIED Status: Acute (2) CHF (congestive heart failure) Code(s): I50.9 - HEART FAILURE, UNSPECIFIED Status: Chronic Comment: ef 45% mixed diastolic and systolic failure (3) COPD (chronic obstructive pulmonary disease) Status: Chronic (4) Chronic anticoagulation Code(s): Z79.01 - CHIEF COMMUNICATIONS OFFICER (CURRENT) USE OF ANTICOAGULANTS Status: Chronic (5) HTN (hypertension) Code(s): I10 - ESSENTIAL (PRIMARY) HYPERTENSION Status: Chronic (6) Nonischemic cardiomyopathy Code(s): I42.8 - OTHER CARDIOMYOPATHIES Status: Chronic (7) Paroxysmal A-fib Code(s): I48.0 - PAROXYSMAL ATRIAL FIBRILLATION Status: Chronic (8) Seizure disorder Code(s): G40.909 - EPILEPSY, UNSP, NOT INTRACTABLE, WITHOUT STATUS EPILEPTICUS Status: Chronic Comment: Stable on Dilantin. (9) Tobacco abuse Code(s): Z72.0 - TOBACCO USE Status: Chronic - Plan * s/p cath- mild cad * ok to d/c per card * out pt f/u with gi and pcp
[2017-09-29] MEDS ORDERED: Iopamidol 370 76% 50 ML VIAL FS ONE (14:22)
[2017-09-29] MEDS ORDERED: Iopamidol 370 76% 100 ML VIAL ONE (14:22)
[2017-09-29] MEDS ORDERED: Sodium Chloride 0.9% 200 ML IV SCH (14:30)
--- NOTE | 2017-09-29 14:34 | DIS ---
DATE OF ADMISSION: 09/27/2017 DATE OF DISCHARGE: 09/29/2017 DISCHARGE DIAGNOSES: 1. Chest pain, noncardiac in origin, status post catheterization which shows mild coronary artery di sease, most probably gastroesophageal reflux disease. 2. Chronic systolic congestive heart failure with status post automated implantable cardioverter def ibrillator with ejection fraction of 40%. 3. Nonischemic cardiomyopathy. 4. Chronic atrial fibrillation on anticoagulation. 5. Hypertension. 6. Chronic obstructive pulmonary disease. 7. Tobacco use. 8. Hyperlipidemia. 9. History of transient ischemic attack. 10. Seizure disorder. 11. Anxiety. 12. Obesity with body mass index of 36.4. 13. History of deep venous thrombosis in the past. DISCHARGE MEDICATIONS: The patient's discharge medications include all home medications plus Nexium 40 mg p.o. daily. CONSULTANTS: On the case was Dr. Nish Meyers. The patient's primary physician is Dr. Karly Hill. BRIEF HOSPITAL COURSE: A 52-year-old pleasant gentleman came into the hospital with chest pain. Ple ase refer to the admitting physician's H&P for further details. The patient was put on ACS protocol. Dr. Meyers catheterized him today and the catheterization showed only mild coronary artery diseas e. He said that the patient could be discharged home with outpatient followup with PCP and GI and em pirically treated with Nexium for now for GERD. The patient has been advised to stop smoking, lose w eight and eat right. He understands all this. He is asked to come back to the emergency room in antonio e symptoms recur. Total time for this discharge took 35 minutes.
[2017-09-29 15:57] VITALS: BP 112/63
[2017-09-29] MEDS ORDERED: Warfarin Sodium 5 MG TAB PO SCH (17:00)
== END 2017-09-29 19:15 | disposition home or self-care (01) ==
LOC: ERS 17:13 → 2SW 20:00
PROVIDERS: ADMIT Internal Medicine; ATTEND Internal Medicine
DX: R07.89 Other chest pain (principal); I11.0 Hypertensive heart disease with heart failure; I50.22 Chronic systolic (congestive) heart failure; I42.8 Other cardiomyopathies; I48.2 Chronic atrial fibrillation; J44.9 Chronic obstructive pulmonary disease, unspecified; F41.9 Anxiety disorder, unspecified; G40.909 Epilepsy, unspecified, not intractable, without status epilepticus; E78.5 Hyperlipidemia, unspecified; F17.210 Nicotine dependence, cigarettes, uncomplicated; E66.9 Obesity, unspecified; Z68.36 Body mass index [BMI] 36.0-36.9, adult; Z88.5 Allergy status to narcotic agent; Z91.040 Latex allergy status; Z79.899 Other long term (current) drug therapy; Z95.810 Presence of automatic (implantable) cardiac defibrillator; Z98.890 Other specified postprocedural states; Z86.73 Personal history of transient ischemic attack (TIA), and cerebral infarction without residual deficits
CPT/HCPCS: 36415; 36416; 71010; 76700; 80048; 80053; 80162; 82553; 83690; 83735; 83880; 84100; 84484; 85014; 85018; 85025; 85049; 85347; 85610; 85730; 93005; 93458; 94760; 96361; 96374; 96375; 96376; 99152; 99406; A4216; C1769; G0378; J1644; J1940; J2250; J2270; J2274; J2720

== ENCOUNTER 2018-01-26 10:46 | Emergency (ER) | payer OTHER, SELFPAY ==
[2018-01-26 11:43] LABS: #Eosinphils 0.1 thou/uL (0.0-0.7); #Lymphocytes 1.1 thou/uL (1.20-3.40); #Monocytes 0.9 thou/uL (0.11-0.59); #Neutrophils 6.1 thou/uL (1.40-6.50); %Eosinophils 1.1 % (0.0-10.0); %Lymphocytes 13.4 % (21.0-51.0); %Monocytes 11.5 % (0.0-10.0); Hemoglobin 15.1 g/dL (14.0-18.0); Mean Corpuscular HGB CONC 33.6 g/dL (32.0-36.0); Mean Corpuscular Hemoglobin 32.4 pg (27.0-31.0); Mean Corpuscular Volume 96.3 fl (80.0-94.0); Mean Platelet Volume 6.3 fL (7.4-10.4); Platelet Count 248 thou/uL (130-400); RBC Distribution Width 12.3 % (11.5-14.5); Red Blood Cell (RBC) Count 4.68 mill/uL (4.70-6.10); White Blood Cell (WBC) Count 8.2 thou/uL (4.8-10.8)
--- NOTE | 2018-01-26 11:50 | RAD ---
AP CHEST: Indication: History of chest pain, shortness of breath. FINDINGS: There is cardiomegaly with pulmonary vascular congestion. No definite pleural effusion or pneumothora x is evident. Single lead AICD is unchanged from the comparison dated 09-27-17. IMPRESSION: Cardiomegaly with mild pulmonary vasculature congestion. POS: [facility]
[2018-01-26 12:06] LABS: CKMB 2.7 ng/mL (0-6.6); Troponin I 0.049 ng/mL (< 0.028)
[2018-01-26 12:11] LABS: ALT (SGPT) 29 U/L (8-55); AST (SGOT) 31 U/L (5-34); Albumin 3.7 g/dL (3.5-5.0); Alkaline Phosphatase 112 U/L (40-150); Anion Gap 14 mmol/L (10-20); BUN (Urea Nitrogen) 22 mg/dL (8.9-20.6); Bilirubin, Total 0.6 mg/dL (0.2-1.2); CK (CPK) 79 U/L (30-200); Calc. Creatinine Clearance 0 mL/min (70-130); Calcium 9.3 mg/dL (7.8-10.44); Carbon Dioxide 34 mmol/L (22-29); Chloride 93 mmol/L (98-107); Estimated GFR-MDRD 88; Globulin 3.4 g/dL (2.4-3.5); Glucose 136 mg/dL (70-105); Lipase 23 U/L (8-78); Potassium 3.8 mmol/L (3.5-5.1); Protein, Total 7.1 g/dL (6.0-8.3); Sodium 137 mmol/L (136-145)
[2018-01-26] MEDS ORDERED: Mag-Al 1200 mg/1200 mg/30 ML UDCUP ONE (13:06)
[2018-01-26] MEDS ORDERED: Lidocaine Viscous Sol 2% 15 ml UD Cup ONE (13:06)
[2018-01-26 13:58] LABS: Troponin I 0.056 ng/mL (< 0.028)
== END 2018-01-26 14:17 | disposition home or self-care (01) ==
LOC: ERS 10:46
DX: R07.89 Other chest pain (principal); K21.9 Gastro-esophageal reflux disease without esophagitis; I25.2 Old myocardial infarction; I49.9 Cardiac arrhythmia, unspecified; I48.91 Unspecified atrial fibrillation; J44.9 Chronic obstructive pulmonary disease, unspecified; I13.0 Hypertensive heart and chronic kidney disease with heart failure and stage 1 through stage 4 chronic kidney disease, or unspecified chronic kidney disease; N18.9 Chronic kidney disease, unspecified; I50.9 Heart failure, unspecified; F41.9 Anxiety disorder, unspecified; F32.9 Major depressive disorder, single episode, unspecified; F17.290 Nicotine dependence, other tobacco product, uncomplicated; Z79.899 Other long term (current) drug therapy; Z86.73 Personal history of transient ischemic attack (TIA), and cerebral infarction without residual deficits; Z79.84 Long term (current) use of oral hypoglycemic drugs
CPT/HCPCS: 36415; 71045; 80053; 82550; 82553; 83690; 83880; 84484; 85025; 93005

== ENCOUNTER 2018-03-02 09:44 | Outpatient (CLI) | payer OTHER | END 2018-03-02 09:45 | disposition home or self-care (01) | LOC: BICRAD 09:44 | PROVIDERS: ATTEND Internal Medicine | DX: Z02.71 Encounter for disability determination (principal); M47.896 Other spondylosis, lumbar region | CPT/HCPCS: 72100 ==

== ENCOUNTER 2018-05-05 02:35 | Inpatient (IN) | payer SELFPAY ==
[2018-05-05 03:22] LABS: #Eosinphils 0.1 thou/uL (0.0-0.7); #Lymphocytes 1.5 thou/uL (1.20-3.40); #Monocytes 0.6 thou/uL (0.11-0.59); #Neutrophils 6.2 thou/uL (1.40-6.50); %Basophils 0.1 % (0.0-1.0); %Eosinophils 1.6 % (0.0-10.0); %Lymphocytes 17.7 % (21.0-51.0); %Monocytes 7.5 % (0.0-10.0); Hemoglobin 15.2 g/dL (14.0-18.0); Mean Corpuscular HGB CONC 33.5 g/dL (32.0-36.0); Mean Corpuscular Hemoglobin 33.2 pg (27.0-31.0); Mean Corpuscular Volume 99.1 fL (78.0-98.0); Mean Platelet Volume 6.3 fL (7.4-10.4); Platelet Count 347 thou/uL (130-400); RBC Distribution Width 12.7 % (11.5-14.5); Red Blood Cell (RBC) Count 4.58 mill/uL (4.70-6.10); White Blood Cell (WBC) Count 8.5 thou/uL (4.8-10.8)
[2018-05-05] MEDS ORDERED: Furosemide 40 MG/4 ML VIAL ONE (03:28)
[2018-05-05 03:39] LABS: Chloride 105 mmol/L (98-107); Sodium 140 mmol/L (136-145)
[2018-05-05 03:43] LABS: CKMB 2.8 ng/mL (0-6.6); Troponin I 0.035 ng/mL (< 0.028)
[2018-05-05] MEDS ORDERED: Enoxaparin Sodium 80 MG/0.8 ML SYRINGE ONE (03:54)
[2018-05-05] MEDS ORDERED: Enoxaparin Sodium 30 MG/0.3 ML SYRINGE ONE (03:54)
[2018-05-05 03:56] LABS: Albumin 3.3 g/dL (3.5-5.0)
[2018-05-05 03:57] LABS: Calcium 9.3 mg/dL (7.8-10.44)
[2018-05-05 03:58] LABS: Glucose 128 mg/dL (70-105)
[2018-05-05 03:59] LABS: Globulin 3.1 g/dL (2.4-3.5); Protein, Total 6.4 g/dL (6.0-8.3)
[2018-05-05 04:00] LABS: Bilirubin, Total 0.5 mg/dL (0.2-1.2); Carbon Dioxide 27 mmol/L (22-29)
[2018-05-05 04:01] LABS: Alkaline Phosphatase 70 U/L (40-150)
[2018-05-05 04:02] LABS: BUN (Urea Nitrogen) 8 mg/dL (8.4-25.7); Calc. Creatinine Clearance 0 mL/min (70-130); Estimated GFR-MDRD 87
[2018-05-05 04:03] LABS: AST (SGOT) 16 U/L (5-34)
[2018-05-05 04:04] LABS: ALT (SGPT) 13 U/L (8-55); CK (CPK) 56 U/L (30-200)
[2018-05-05 04:05] LABS: INR-International Normal Ratio 1.1; PTT 33.3 SEC (22.9-36.1); Prothrombin Time 14.4 SEC (12.0-14.7)
[2018-05-05] MEDS ORDERED: Albuterol Sulfate 1.25 MG/3 ML NEB NEB PRN (04:26)
[2018-05-05] MEDS ORDERED: Ondansetron HCl/PF 4 MG/2 ML Vial IVP PRN (04:27)
[2018-05-05] MEDS ORDERED: Dextrose 50% Abboject 50 ML SYRINGE SLOW IVP PRN (04:30)
[2018-05-05] MEDS ORDERED: Dextrose 5% in Water 1,000 ML IV PRN (04:30)
[2018-05-05] MEDS ORDERED: HumaLOG 300 UNITS/3 ML VIAL SC PRN (04:30)
[2018-05-05 05:29] VITALS: BMI 34.3
[2018-05-05 05:43] LABS: Anion Gap 12 mmol/L (10-20)
[2018-05-05 06:47] LABS: Troponin I 0.043 ng/mL (< 0.028)
[2018-05-05] MEDS: Potassium Chloride 20 MEQ TAB PO SCH (07:55)
[2018-05-05] MEDS: Furosemide 40 MG/4 ML VIAL SLOW IVP SCH (07:55)
--- NOTE | 2018-05-05 09:06 | HP ---
TIME OF EVALUATION: 04:20 a.m. PRIMARY CARE PHYSICIAN: No PCP. CODE STATUS: FULL CODE. CHIEF COMPLAINT: Shortness of breath. HISTORY OF PRESENT ILLNESS: This is a 53-year-old male patient with a past medical history of conges tive heart failure, the patient came to the hospital after having severely gradually worsening shortn ess of breath associated with bilateral lower extremity edema 4+, patient reported he had been with n o money to see his primary doctor, . He denies any fever. No chills. The symptoms have been getting worse for this patient for the past 2 weeks. REVIEW OF SYSTEMS: No delusions, no fever, no chills. The patient reported generalized weakness. R espiratory: No cough or sputum production or shortness of breath. Cardiovascular: No chest pain, p alpitation. The patient has shortness of breath, bilateral leg edema. Gastrointestinal: No nausea, vomiting, diarrhea or abdominal pain. Central Nervous Systems: No dizziness, headache, or feeling lightheaded. Genitourinary: No burning on urination. Extremities: Bilateral leg swelling. All ot her symptoms reviewed were negative except for the findings mentioned above. PAST MEDICAL HISTORY: Congestive heart failure, asthma, atrial fibrillation, hypertension, COPD, TIA x2, seizures, kidney failure. PAST SURGICAL HISTORY: Pacemaker/defibrillator, cardiac ablation, cardiac catheterization in 2013. PSYCHIATRIC HISTORY: Anxiety, depression. SOCIAL HISTORY: Patient drinks twice a month, former drug use, abuse cocaine in the past and marijua na. ALLERGIES: LATEX and TRAMADOL. REPORTED MEDICATIONS: The patient was noncompliant and was not getting medications plus reconciliati on showed isosorbide mononitrate, metoprolol, lovastatin, spironolactone, metformin, phenytoin, Janto baldo, digoxin, acetaminophen with codeine, torsemide, atorvastatin, and lisinopril. PHYSICAL EXAMINATION: VITAL SIGNS: On presentation, respiratory rate 22, blood pressure 117/76, pulse 83, oxygen saturatio n 94% on room air. GENERAL APPEARANCE: The patient is alert, oriented, in no acute distress. HEENT: Eyes: Normal conjunctivae. Moist oral mucosa, anicteric. NECK: No JVD. RESPIRATORY: Bilateral air entry. No rales, no wheezing. Symmetric expansion. CARDIOVASCULAR: Normal rate, regular rhythm. No murmurs, no gallop. Bilateral leg edema. ABDOMEN: Soft, normal bowel sounds. MUSCULOSKELETAL: Baseline range of motion and strength. No tenderness. SKIN: Warm and intact. No pallor, no rash. Patient has scattered scratches in bilateral lower extr emities. NEUROLOGIC: Baseline sensorium. No evidence of any new focal weakness. Baseline speech. Cranial n erves seem to be intact. PSYCHIATRIC: The patient is in a good mood. No anxiety. Oriented, optimal adjustment. LABORATORY AND DIAGNOSTIC DATA: Reviewed. White count 8.5, hemoglobin 15, platelet count 347,000. Coagulation was normal. Chemistry: Sodium 140, potassium 4, chloride 105, carbon dioxide 37, anion gap pending. BUN 8, creatinine 0.9, GFR 87, glucose 128. First troponin 0.035. Beta natriuretic pe ptide 271, albumin 3.3. Chest x-ray was reviewed. The patient has bilateral cephalization of pulmon roel venous system, compatible with congestion pattern as CHF exacerbation. AICD has been visualized also a pacemaker in the same device. EKG was reviewed, the patient has PVCs, RBCs, no evidence of an y acute ischemic event. This was discussed with the performing physician from ER. ASSESSMENT AND PLAN: The patient will be placed to the hospital for the following medical problems: 1. Congestive heart failure exacerbation, patient was noncompliant, he reportedly ran out of [place] and had no money for them. We will reconcile home medication , continue on diuresis, adjust ing medication as needed. 2. Mildly elevated troponin. The patient had 0.03 troponin likely secondary to non- ST-elevation my ocardial infarction type 2, we will reconcile medication. We will treat the underlying condition. W e will trend troponins. 3. Uncontrolled diabetes with blood sugar of 128, reconcile home meds. Sliding scale for optimal co ntrol. 4. History of coronary artery disease, mildly elevated troponin, treatment as above. Otherwise, his heart seems to be stable. We will reconcile home medications. 5. Deep venous thrombosis prophylaxis. 6. History of atrial fibrillation on anticoagulation, rate is controlled at this point, the patient has a pacemaker, AICD. We will consult Pharmacy to dose Coumadin.
[2018-05-05 09:50] LABS: Troponin I 0.066 ng/mL (< 0.028)
--- NOTE | 2018-05-05 09:54 | RAD ---
AP VIEW CHEST: Date: 05/05/18 INDICATION: Difficulty breathing and dyspnea. COMPARISON: Prior study dated 01/26/18. FINDINGS: There is moderate cardiomegaly with prominent pulmonary vascular congestion and bilateral perihilar i nterstitial edema. There are small bilateral pleural effusions. [place] AICD is stable. No pneumoth orax is evident. No acute osseous abnormalities evident. IMPRESSION: Findings of CHF. POS: [facility]
[2018-05-05] MEDS: Enoxaparin Sodium 40 MG/0.4 ML SYRINGE SC SCH (10:24)
[2018-05-05] MEDS: Spironolactone 25 MG TAB PO SCH (10:24)
[2018-05-05] MEDS: Metoprolol Tartrate 100 MG TAB PO SCH ×2 (10:24→20:09)
[2018-05-05] MEDS: Amlodipine 5 MG TAB PO SCH (10:24)
[2018-05-05] MEDS: Warfarin Sodium 5 MG TAB PO SCH (16:09)
[2018-05-05] MEDS: Acetaminophen 325 MG TAB PO PRN (20:21)
[2018-05-05] MEDS ORDERED: Atorvastatin Calcium 10 MG TAB PO SCH (21:00)
[2018-05-06 05:54] LABS: Hemoglobin A1c 5.4 % (4.0-6.0)
[2018-05-06 05:59] LABS: CKMB 2.3 ng/mL (0-6.6); Troponin I 0.022 ng/mL (< 0.028)
[2018-05-06 06:07] LABS: Anion Gap 9 mmol/L (10-20); BUN (Urea Nitrogen) 14 mg/dL (8.4-25.7); Calc. Creatinine Clearance 144 mL/min (70-130); Calcium 8.5 mg/dL (7.8-10.44); Carbon Dioxide 26 mmol/L (22-29); Cardiac Risk 4.3 (Less than 4.5); Chloride 99 mmol/L (98-107); Cholesterol 145 mg/dl (< 200 Desired); Estimated GFR-MDRD 81; Glucose 89 mg/dL (70-105); HDL Cholesterol 34 mg/dL (>60 Neg Risk); LDL Cholesterol, Calculated 89 mg/dL; Magnesium 1.8 mg/dL (1.6-2.6); Sodium 130 mmol/L (136-145); Triglycerides 108 mg/dL (Less than 150)
[2018-05-06 06:27] LABS: #Eosinphils 0.2 thou/uL (0.0-0.7); #Monocytes 0.7 thou/uL (0.11-0.59); #Neutrophils 4.3 thou/uL (1.40-6.50); %Basophils 0.7 % (0.0-1.0); %Eosinophils 3.2 % (0.0-10.0); %Lymphocytes 27.6 % (21.0-51.0); %Monocytes 9.2 % (0.0-10.0); %Neutrophils 59.4 % (42.0-75.0); Hemoglobin 14.3 g/dL (14.0-18.0); Mean Corpuscular HGB CONC 32.3 g/dL (32.0-36.0); Mean Corpuscular Hemoglobin 32.5 pg (27.0-31.0); Mean Platelet Volume 6.8 fL (7.4-10.4); Platelet Count 333 thou/uL (130-400); RBC Distribution Width 12.7 % (11.5-14.5); Red Blood Cell (RBC) Count 4.41 mill/uL (4.70-6.10); White Blood Cell (WBC) Count 7.3 thou/uL (4.8-10.8)
[2018-05-06] MEDS: Potassium Chloride 20 MEQ TAB PO SCH (08:40)
[2018-05-06] MEDS: Amlodipine 5 MG TAB PO SCH (08:40)
[2018-05-06] MEDS: Enoxaparin Sodium 40 MG/0.4 ML SYRINGE SC SCH (08:41)
[2018-05-06] MEDS: Furosemide 40 MG/4 ML VIAL SLOW IVP SCH (08:42)
[2018-05-06] MEDS: Metoprolol Tartrate 100 MG TAB PO SCH ×2 (08:42→22:25)
[2018-05-06] MEDS: Spironolactone 25 MG TAB PO SCH (08:43)
[2018-05-06] MEDS: Acetaminophen 325 MG TAB PO PRN ×2 (08:43→12:11)
[2018-05-06] MEDS ORDERED: Furosemide 40 MG/4 ML VIAL SLOW IVP SCH (14:45)
--- NOTE | 2018-05-06 17:02 | CON ---
DATE OF CONSULTATION: 05/06/2018 REASON FOR CONSULTATION: Acute on chronic systolic heart failure. HISTORY OF PRESENT ILLNESS: Mr. Riggins is a 53-year-old gentleman, a patient of Dr. Nish Meyers. He has a history of nonischemic cardiomyopathy status post defibrillator placement. He has had issu es with noncompliance. He states his mother recently and has mainly been taking care of his medications. He states he currently has no funding for medications. He states he has increased shortness of breath, chest pressure and tightness in addition to lower extremity edema and PND. His last angiogram was performed 6 months ago. He had no significant underlying coronary disease. PAST MEDICAL HISTORY: As above including tobacco abuse, asthma, atrial fibrillation, COPD, and TIA. SOCIAL HISTORY: As above including positive alcohol use. ALLERGIES: LATEX, TRAMADOL. REVIEW OF SYSTEMS: Ten-point review of systems is reviewed as above, otherwise negative. CURRENT MEDICATIONS: None. He is currently noncompliant. PHYSICAL EXAMINATION: VITAL SIGNS: Blood pressure 108/62, pulse 71, temperature 98.2. GENERAL: Patient is a pleasant male who is in no acute distress. The patient appears his stated age . NEUROLOGIC: The patient is alert and oriented times 3 with no focal neurologic deficits. HEENT: Sclerae without icterus. Mouth has moist mucous membranes with normal pallor. NECK: No JVD. Carotid upstroke brisk. No bruits bilaterally. LUNGS: Clear to auscultation with unlabored respirations. BACK: No scoliosis or kyphosis. CARDIAC: Regular rate and rhythm with normal S1 and S2. No S3 or S4 noted. No significant rubs, murmurs, thrills, or gallops noted throughout the precordium. PMI is not displaced. There is no parasternal heave. ABDOMEN: Soft, nontender, nondistended. No peritoneal signs present. No hepatosplenomegaly. No abnormal striae. EXTREMITIES: 2+ femoral and 2+ dorsalis pedis pulses. No cyanosis, clubbing, or edema. SKIN: No gross abnormalities. PERTINENT LABS: Hemoglobin 14.3. Creatinine 0.98. Echo with Doppler LVEF 40%-45%. IMPRESSION: 1. Acute on chronic systolic heart failure. 2. Noncompliance. 3. Tobacco abuse. RECOMMENDATIONS: Likely, the patient has underlying coronary disease and angina. Symptoms likely re lated to acute on chronic systolic heart failure. He has been treated appropriately with Lasix. Con tinue amlodipine. Discontinue isosorbide. It would be best to try and consolidate his medications. He is on metoprolol and may benefit from a long-acting metoprolol if not cross prohibitive. Continu e Coumadin, although INR was 1.1. Again, back to question on whether he will continue to be complian t with Coumadin therapy. We will leave the discretion of Dr. Nish Meyers.
[2018-05-06] MEDS ORDERED: PROVENTIL INHALER 6.7 G (200 INHALATIONS) INH PRN (17:35)
[2018-05-06] MEDS: HYDROcodone/Acetaminophen 10/325 mg Tablet PO PRN (17:57)
[2018-05-06] MEDS: Warfarin Sodium 5 MG TAB PO SCH (17:58)
[2018-05-07 05:44] LABS: #Basophils 0.1 thou/uL (0.0-0.2); #Eosinphils 0.2 thou/uL (0.0-0.7); #Lymphocytes 1.9 thou/uL (1.20-3.40); #Monocytes 0.6 thou/uL (0.11-0.59); #Neutrophils 4.2 thou/uL (1.40-6.50); %Basophils 0.8 % (0.0-1.0); %Eosinophils 2.4 % (0.0-10.0); %Lymphocytes 26.8 % (21.0-51.0); %Monocytes 9.3 % (0.0-10.0); %Neutrophils 60.6 % (42.0-75.0); Hemoglobin 14.3 g/dL (14.0-18.0); Mean Corpuscular HGB CONC 33.1 g/dL (32.0-36.0); Mean Corpuscular Hemoglobin 32.7 pg (27.0-31.0); Mean Corpuscular Volume 98.7 fL (78.0-98.0); Mean Platelet Volume 6.2 fL (7.4-10.4); Platelet Count 348 thou/uL (130-400); RBC Distribution Width 12.4 % (11.5-14.5); Red Blood Cell (RBC) Count 4.37 mill/uL (4.70-6.10); White Blood Cell (WBC) Count 6.9 thou/uL (4.8-10.8)
[2018-05-07 05:45] LABS: INR-International Normal Ratio 1.1; Prothrombin Time 14.4 SEC (12.0-14.7)
[2018-05-07 05:56] LABS: Anion Gap 11 mmol/L (10-20); BUN (Urea Nitrogen) 17 mg/dL (8.4-25.7); Calc. Creatinine Clearance 145 mL/min (70-130); Calcium 8.8 mg/dL (7.8-10.44); Carbon Dioxide 28 mmol/L (22-29); Chloride 101 mmol/L (98-107); Estimated GFR-MDRD 84; Glucose 108 mg/dL (70-105); Magnesium 1.8 mg/dL (1.6-2.6); Sodium 136 mmol/L (136-145)
[2018-05-07] MEDS: Furosemide 40 MG/4 ML VIAL SLOW IVP SCH ×2 (06:07→13:35)
[2018-05-07] MEDS: HYDROcodone/Acetaminophen 10/325 mg Tablet PO PRN ×3 (06:07→21:35)
[2018-05-07] MEDS: metFORMIN 500 MG TAB PO SCH ×2 (08:53→17:10)
[2018-05-07] MEDS: Atorvastatin Calcium 40 MG TAB PO SCH (08:54)
[2018-05-07] MEDS: Spironolactone 25 MG TAB PO SCH (08:54)
[2018-05-07] MEDS: Digoxin 0.25 MG TAB PO SCH (08:54)
[2018-05-07] MEDS: Amlodipine 5 MG TAB PO SCH (08:54)
[2018-05-07] MEDS: Metoprolol Tartrate 100 MG TAB PO SCH ×2 (08:54→21:35)
[2018-05-07] MEDS: Lisinopril 20 MG TAB PO SCH (08:54)
[2018-05-07] MEDS: Enoxaparin Sodium 40 MG/0.4 ML SYRINGE SC SCH (08:55)
[2018-05-07] MEDS: Potassium Chloride 20 MEQ TAB PO SCH (08:55)
[2018-05-07] MEDS ORDERED: Warfarin Sodium 5 MG TAB PO SCH (17:00)
[2018-05-07] MEDS: Warfarin Sodium 5 MG TAB PO SCH (17:10)
[2018-05-07] MEDS: Enoxaparin Sodium 120 MG/0.8 ML SYRINGE SC SCH (21:34)
[2018-05-08] MEDS: Furosemide 40 MG/4 ML VIAL SLOW IVP SCH ×2 (05:49→14:37)
[2018-05-08] MEDS: HYDROcodone/Acetaminophen 10/325 mg Tablet PO PRN ×3 (05:55→14:37)
[2018-05-08 05:58] LABS: INR-International Normal Ratio 1.1; Prothrombin Time 14.4 SEC (12.0-14.7)
[2018-05-08 07:19] LABS: Hemoglobin 14.5 g/dL (14.0-18.0); Platelet Count 334 thou/uL (130-400)
[2018-05-08] MEDS ORDERED: Sodium Chloride 0.9% 10 ML ONE (07:25)
[2018-05-08 07:34] LABS: Amphetamine Not Detected (NotDetected); Barbiturates Screen Detected (NotDetected); Benzodiazepine Screen Not Detected (NotDetected); Cocaine Metabolite Screen Detected (NotDetected); Medtox Control Line Valid? VALID (VALID); Medtox Reader # READER 1; Methadone Not Detected (NotDetected); Methamphetamine Not Detected (NotDetected); Opiate Screen Detected (NotDetected); Oxycodone Screen Not Detected (NotDetected); Phencyclidine (PCP) Not Detected (NotDetected); THC/Cannabinoid Screen Not Detected (NotDetected); Tricyclic Screen Not Detected (NotDetected)
[2018-05-08] MEDS: metFORMIN 500 MG TAB PO SCH ×2 (08:33→17:37)
[2018-05-08] MEDS: Potassium Chloride 20 MEQ TAB PO SCH (08:33)
[2018-05-08] MEDS: Digoxin 0.25 MG TAB PO SCH (08:34)
[2018-05-08] MEDS: Atorvastatin Calcium 40 MG TAB PO SCH (08:34)
[2018-05-08] MEDS: Enoxaparin Sodium 120 MG/0.8 ML SYRINGE SC SCH (08:35)
[2018-05-08] MEDS: Lisinopril 20 MG TAB PO SCH (08:36)
[2018-05-08] MEDS: Metoprolol Tartrate 100 MG TAB PO SCH (08:37)
[2018-05-08] MEDS: Spironolactone 25 MG TAB PO SCH (08:37)
[2018-05-08] MEDS: Amlodipine 5 MG TAB PO SCH (09:51)
[2018-05-08 11:48] VITALS: TEMP 98.8
[2018-05-08 14:36] VITALS: BP 108/69
[2018-05-08] MEDS ORDERED: Warfarin Sodium 10 MG TAB PO SCH (17:00)
== END 2018-05-08 18:00 | disposition home or self-care (01) | DRG 280 ==
LOC: ERS 02:35 → 2NO 04:04
PROVIDERS: ADMIT Hospitalist; ATTEND Hospitalist
DX: I21.A1 Myocardial infarction type 2 (principal); I50.23 Acute on chronic systolic (congestive) heart failure; G45.9 Transient cerebral ischemic attack, unspecified; I42.9 Cardiomyopathy, unspecified; I11.0 Hypertensive heart disease with heart failure; I50.9 Heart failure, unspecified; I48.91 Unspecified atrial fibrillation; Z95.810 Presence of automatic (implantable) cardiac defibrillator; F41.9 Anxiety disorder, unspecified; F32.9 Major depressive disorder, single episode, unspecified; E11.65 Type 2 diabetes mellitus with hyperglycemia; I25.10 Atherosclerotic heart disease of native coronary artery without angina pectoris; F17.210 Nicotine dependence, cigarettes, uncomplicated; E78.00 Pure hypercholesterolemia, unspecified; Z91.19 Patient's noncompliance with other medical treatment and regimen; J44.9 Chronic obstructive pulmonary disease, unspecified
CPT/HCPCS: 36415; 36416; 71045; 80048; 80053; 80061; 80306; 82553; 82565; 83036; 83735; 83880; 84484; 85014; 85018; 85025; 85049; 85610; 85730; 93005; 93306; 93798; 94760; 96372; 96374; A4216; J1650; J1940

== ENCOUNTER 2018-07-16 06:34 | Emergency (ER) | payer SELFPAY ==
[2018-07-16] MEDS ORDERED: Furosemide 40 MG/4 ML VIAL ONE (07:06)
[2018-07-16 07:12] LABS: #Eosinphils 0.1 thou/uL (0.0-0.7); #Lymphocytes 1.7 thou/uL (1.20-3.40); #Monocytes 0.8 thou/uL (0.11-0.59); #Neutrophils 6.6 thou/uL (1.40-6.50); %Basophils 0.4 % (0.0-1.0); %Eosinophils 1.3 % (0.0-10.0); %Lymphocytes 18.7 % (21.0-51.0); %Monocytes 8.4 % (0.0-10.0); %Neutrophils 71.3 % (42.0-75.0); Hemoglobin 13.5 g/dL (14.0-18.0); Mean Corpuscular HGB CONC 32.3 g/dL (32.0-36.0); Mean Corpuscular Hemoglobin 30.2 pg (27.0-31.0); Mean Corpuscular Volume 93.4 fL (78.0-98.0); Platelet Count 306 thou/uL (130-400); Red Blood Cell (RBC) Count 4.49 mill/uL (4.70-6.10); White Blood Cell (WBC) Count 9.3 thou/uL (4.8-10.8)
[2018-07-16 07:36] LABS: ALT (SGPT) 17 U/L (8-55); AST (SGOT) 12 U/L (5-34); Albumin 3.4 g/dL (3.5-5.0); Alkaline Phosphatase 91 U/L (40-150); Anion Gap 12 mmol/L (10-20); BUN (Urea Nitrogen) 7 mg/dL (8.4-25.7); Bilirubin, Total 0.6 mg/dL (0.2-1.2); CK (CPK) 96 U/L (30-200); Calc. Creatinine Clearance 0 mL/min (70-130); Calcium 8.6 mg/dL (7.8-10.44); Carbon Dioxide 23 mmol/L (22-29); Chloride 106 mmol/L (98-107); Estimated GFR-MDRD Greater than 90; Globulin 3.1 g/dL (2.4-3.5); Glucose 119 mg/dL (70-105); Lipase 28 U/L (8-78); Protein, Total 6.5 g/dL (6.0-8.3); Sodium 137 mmol/L (136-145)
[2018-07-16 07:39] LABS: CKMB 3.9 ng/mL (0-6.6); Troponin I 0.017 ng/mL (< 0.028)
[2018-07-16] MEDS ORDERED: methylPREDNISolone Sod Succ/PF 125 MG/2 ML VIAL ONE (08:14)
[2018-07-16 08:32] LABS: Bilirubin Negative (Negative); Blood, Urine Negative (Negative); Clarity CLEAR (Clear); Glucose, Urine (Dipstick) Negative (Negative); Leukocyte Negative (Negative); Nitrite Negative (Negative); Protein, Urine (Dipstick) Negative (Neg-Trace); Specific Gravity, Urine 1.004 (1.002-1.036); Urobilinogen 0.2 mg/dL (0.2-1.0); pH, Urine 5.5 (5.0-9.0)
[2018-07-16 08:34] LABS: INR-International Normal Ratio 1.2; PTT 35.8 SEC (22.9-36.1); Prothrombin Time 15.3 SEC (12.0-14.7)
[2018-07-16 08:39] LABS: Cocaine Metabolite Screen Detected (NotDetected); Medtox Reader # READER 4; Phencyclidine (PCP) Not Detected (NotDetected); THC/Cannabinoid Screen Not Detected (NotDetected)
[2018-07-16 08:40] LABS: Amphetamine Not Detected (NotDetected); Barbiturates Screen Not Detected (NotDetected); Benzodiazepine Screen Not Detected (NotDetected); Medtox Control Line Valid? VALID (VALID); Methadone Not Detected (NotDetected); Methamphetamine Not Detected (NotDetected); Opiate Screen Not Detected (NotDetected); Oxycodone Screen Not Detected (NotDetected); Tricyclic Screen Not Detected (NotDetected)
[2018-07-16 08:41] LABS: Acetaminophen Less than 6.0 mcg/mL (10.0-30.0); Alcohol Less than 10 mg/dL (Less than 10); Digoxin Less than 0.15 ng/mL (0.8-2.0); Salicylate Less than 8.0 mg/dL (15.0-30.0)
--- NOTE | 2018-07-16 09:08 | RAD ---
FRONTAL VIEW CHEST: Date: 07/16/18 COMPARISON: 05/05/18. INDICATION: Dyspnea. FINDINGS: Slight improvement with regard to patchy bilateral opacities. The cardiac silhouette remains enlarged . Left-sided AICD persists. IMPRESSION: 1. Interval improvement with regard to bilateral pulmonary parenchymal opacities, with mild residua remaining. 2. Evidence of CHF. POS: [facility]
== END 2018-07-16 13:09 | disposition home or self-care (01) ==
LOC: ERS 06:34
DX: J44.1 Chronic obstructive pulmonary disease with (acute) exacerbation (principal); F32.9 Major depressive disorder, single episode, unspecified; I25.2 Old myocardial infarction; I48.91 Unspecified atrial fibrillation; I10 Essential (primary) hypertension; Z86.73 Personal history of transient ischemic attack (TIA), and cerebral infarction without residual deficits; J45.909 Unspecified asthma, uncomplicated; F41.9 Anxiety disorder, unspecified; F17.210 Nicotine dependence, cigarettes, uncomplicated; Z79.899 Other long term (current) drug therapy; Z79.84 Long term (current) use of oral hypoglycemic drugs
CPT/HCPCS: 36415; 71045; 80053; 80162; 80185; 80306; 80307; 81003; 82550; 82553; 83690; 83880; 84443; 84484; 85025; 85610; 85730; 93005; 94640; 94760; 96374; 96375; J1940; J2930; J7620